=== PATIENT | male | born 1985 | race Hispanic/Latino ===

== ENCOUNTER 2018-08-04 03:09 | Emergency (ER) | payer OTHER, SELFPAY ==
[2018-08-04] MEDS ORDERED: LORazepam 2 MG/ML VIAL ONE (03:51)
[2018-08-04] MEDS ORDERED: NA CHLORIDE 0.9% 1,000 ML ONE (03:51)
[2018-08-04 04:00] LABS: Absolute Lymphocytes (CBC) 2.3 K/uL (0.7-4.9); Absolute Monocytes 0.7 K/uL (0.1-1.3); Absolute Neutrophil 8.4 K/uL (1.8-8.0); Basophils % 0.6 % (0-1.3); Eosinophils % 0.6 % (0-4.4); Hematocrit 48.1 % (39.6-49.0); Lymphocytes % 19.7 % (15.3-44.8); MPV 6.8 fL (7.6-11.3); Monocytes % 6.2 % (3.3-12.3); RBC Red Blood Cell Count 5.32 M/uL (4.33-5.43)
[2018-08-04 04:04] LABS: Protime INR 0.97
[2018-08-04 04:15] LABS: ALT/SGPT 27 U/L (12-78); AST/SGOT 23 U/L (15-37); Albumin 4.2 g/dL (3.4-5.0); Alkaline Phosphatase 141 U/L (45-117); BUN Blood Urea Nitrogen 10 mg/dL (7-18); Bicarbonate 24 mmol/L (21-32); Bilirubin Direct 0.2 mg/dL (0-0.2); Bilirubin Total 0.7 mg/dL (0.2-1.0); Glucose Level 98 mg/dL (74-106); Potassium 3.4 mmol/L (3.5-5.1); Protein, Total 7.8 g/dL (6.4-8.2); Sodium Level 141 mmol/L (136-145)
--- NOTE | 2018-08-04 04:37 | ER ---
Nurse's Notes [facility] Name: Ethan Daly Age: 32 yrs Sex: Male : 1985 Arrival Date: 08/04/2018 Time: 03:17 Bed 3 Private MD: Diagnosis: Abuse of non-psychoactive substances;Cocaine abuse;Cocaine abuse with intoxication;Adjustment disorder with depressed mood;Hypokalemia Presentation: 08/04 03:22 Presenting complaint: Patient states: Pt reports taking a lot of cocaine today and tl2 yesterday and drinking "25 beers today". Pt is trembling. Pt denies suicidal ideation, pt mother states he is going through a divorce and is having a hard time. Transition of care: patient was not received from another setting of care. Onset of symptoms was August 04, 2018. Risk Assessment: Do you want to hurt yourself or someone else? Patient reports no desire to harm self or others. Initial Sepsis Screen: Does the patient meet any 2 criteria? No. Patient's initial sepsis screen is negative. Does the patient have a suspected source of infection? No. Patient's initial sepsis screen is negative. Care prior to arrival: None. 03:22 Method Of Arrival: Wheelchair tl2 03:22 Acuity: FREDI 2 tl2 Triage Assessment: 03:24 General: Appears distressed, uncomfortable, Behavior is agitated, anxious. General: tl2 Reports using cocaine and alcohol today and yesterday. Pain: Denies pain. Neuro: Level of Consciousness is awake, Oriented to person, Speech is normal. Cardiovascular: Denies chest pain. Respiratory: Airway is patent Respiratory effort is even, unlabored, Respiratory pattern is regular, symmetrical. GI: No signs and/or symptoms were reported involving the gastrointestinal system. Derm: Skin is pink, warm \\T\\ dry. Historical: - Allergies: 03:24 No Known Allergies; tl2 - Home Meds: 03:24 None [Active]; tl2 - PMHx: 03:24 None; tl2 - PSHx: 03:24 left arm; tl2 - Immunization history:: Adult Immunizations up to date. - Social history:: Smoking status: Patient uses tobacco products, denies chronic smoking, but will smoke occasionally, Patient uses street drugs, cocaine, Patient uses alcohol, on a daily basis. - Ebola Screening: : No symptoms or risks identified at this time. - Family history:: not pertinent. Screenin:28 Abuse screen: Denies threats or abuse. Nutritional screening: No deficits noted. tl2 Tuberculosis screening: No symptoms or risk factors identified. Fall Risk IV access (20 points). Mental Status- Overestimates/Forgets Limitations (15 pts.). Assessment: 03:29 General: see triage assessment. tl2 04:18 Reassessment: Patient appears in no apparent distress at this time. Patient and/or tl2 family updated on plan of care and expected duration. Pain level reassessed. pt resting comfortably. Fluids infusing, VSS, family at bedside. 05:30 Reassessment: Patient appears in no apparent distress at this time. Patient and/or tl2 family updated on plan of care and expected duration. Pain level reassessed. pt appears to be sleeping, RR even and unlabored. 06:32 Reassessment: Patient appears in no apparent distress at this time. Patient and/or tl2 family updated on plan of care and expected duration. Pain level reassessed. Patient is alert, oriented x 3, equal unlabored respirations, skin warm/dry/pink. pt calm and resting comfortably. No questions or concerns at this time Patient states feeling better. 06:50 Reassessment: Patient appears in no apparent distress at this time. Patient and/or tl2 family updated on plan of care and expected duration. Pain level reassessed. Patient is alert, oriented x 3, equal unlabored respirations, skin warm/dry/pink. pt and family verbalized understanding of discharge instructions, need for follow up and safety practices Patient states feeling better. Vital Signs: 03:24 BP 148 / 93; Pulse 100; Resp 20; Temp 98.2(O); Pulse Ox 100% ; Weight 68.04 kg; Height tl2 5 ft. 7 in. (170.18 cm); Pain 0/10; 04:17 BP 117 / 74; Pulse 80; Resp 15; Pulse Ox 97% on R/A; tl2 05:15 BP 116 / 71; Pulse 81; Resp 16; Pulse Ox 97% on R/A; tl2 06:34 BP 117 / 69; Pulse 74; Resp 16; Pulse Ox 98% on R/A; tl2 03:24 Body Mass Index 23.49 (68.04 kg, 170.18 cm) tl2 ED Course: 03:17 Patient arrived in ED. aa1 03:18 EKG done, by ED staff, reviewed by Alan Luna MD. aa1 03:19 Alan Luna MD is Attending Physician. dipika 03:24 Triage completed. tl2 03:24 Arm band placed on right wrist. EKG completed in triage. Results shown to MD. tl2 03:28 Inserted saline lock: 20 gauge in right antecubital area, using aseptic technique. tl2 Blood collected. placed by DIPAK Wolf. 03:28 Patient has correct armband on for positive identification. Placed in gown. Bed in low tl2 position. Call light in reach. Side rails up X2. Adult w/ patient. 03:28 conveyor monitor on. Pulse ox on. NIBP on. tl2 03:29 Ashli Engel RN is Primary Nurse. tl2 06:50 No provider procedures requiring assistance completed. IV discontinued, intact, tl2 bleeding controlled, No redness/swelling at site. Pressure dressing applied. Administered Medications: 03:42 Drug: NS 0.9% 1000 ml Route: IV; Rate: 1 bolus; Site: right antecubital; tl2 05:00 Follow up: IV Status: Completed infusion; IV Intake: 1000ml tl2 03:43 Drug: Ativan 0.5 mg Route: IVP; Site: right antecubital; tl2 04:00 Follow up: Response: No adverse reaction; Anxiety decreased tl2 06:31 Drug: Ativan 0.5 mg Route: IVP; Site: right antecubital; tl2 06:51 Follow up: Response: No adverse reaction; Anxiety decreased tl2 06:31 Drug: Potassium Effervescent Tablet 25 mEq Route: PO; tl2 06:51 Follow up: Response: No adverse reaction tl2 Intake: 05:00 IV: 1000ml; Total: 1000ml. tl2 Outcome: 04:36 Discharge ordered by . [facility] 06:50 Discharged to home ambulatory, with family. tl2 06:50 Condition: stable 06:50 Discharge instructions given to patient, family, Instructed on discharge instructions, follow up and referral plans. 06:51 Patient left the ED. tl2 Signatures: Arti Doss RN RN aa1 Alan Luna MD MD cha Knox, [place], RN RN tl2 Corrections: (The following items were deleted from the chart) 06:34 05:30 BP 117 / 69; Pulse 74bpm; Resp 16bpm; Pulse Ox 98% RA; tl2 tl2
--- NOTE | 2018-08-04 04:37 | EDPHYS ---
Physician Documentation [facility] Name: Ethan Daly Age: 32 yrs Sex: Male : 1985 Arrival Date: 08/04/2018 Time: 03:17 Bed 3 Private MD: ED Physician Alan Luna HPI: 08/04 03:25 This 32 yrs old Male presents to ER via Wheelchair with complaints of Drug dipika Abuse. 03:25 substance abuse , cocaine. Onset: The symptoms/episode began/occurred 1 day(s) ago. dipika Severity of symptoms: At their worst the symptoms were mild in the emergency department the symptoms are unchanged. The patient has not experienced similar symptoms in the past. Historical: - Allergies: 03:24 No Known Allergies; tl2 - Home Meds: 03:24 None [Active]; tl2 - PMHx: 03:24 None; tl2 - PSHx: 03:24 left arm; tl2 - Immunization history:: Adult Immunizations up to date. - Social history:: Smoking status: Patient uses tobacco products, denies chronic smoking, but will smoke occasionally, Patient uses street drugs, cocaine, Patient uses alcohol, on a daily basis. - Ebola Screening: : No symptoms or risks identified at this time. - Family history:: not pertinent. ROS: 03:25 Constitutional: Negative for fever, chills, and weight loss, Eyes: Negative for injury, dipika pain, redness, and discharge, ENT: Negative for injury, pain, and discharge, Neck: Negative for injury, pain, and swelling, Cardiovascular: Negative for chest pain, palpitations, and edema, Respiratory: Negative for shortness of breath, cough, wheezing, and pleuritic chest pain, Abdomen/GI: Negative for abdominal pain, nausea, vomiting, diarrhea, and constipation, Back: Negative for injury and pain, : Negative for injury, bleeding, discharge, and swelling, MS/Extremity: Negative for injury and deformity, Skin: Negative for injury, rash, and discoloration, Psych: Negative for depression, anxiety, suicide ideation, homicidal ideation, and hallucinations, Allergy/Immunology: Negative for hives, rash, and allergies, Endocrine: Negative for neck swelling, polydipsia, polyuria, polyphagia, and marked weight changes, Hematologic/Lymphatic: Negative for swollen nodes, abnormal bleeding, and unusual bruising. 03:25 Neuro: Positive for altered mental status. Exam: 03:25 Constitutional: This is a well developed, well nourished patient who is awake, alert, dipika and in no acute distress. Head/Face: Normocephalic, atraumatic. Eyes: Pupils equal round and reactive to light, extra-ocular motions intact. Lids and lashes normal. Conjunctiva and sclera are non-icteric and not injected. Cornea within normal limits. Periorbital areas with no swelling, redness, or edema. ENT: Nares patent. No nasal discharge, no septal abnormalities noted. Tympanic membranes are normal and external auditory canals are clear. Oropharynx with no redness, swelling, or masses, exudates, or evidence of obstruction, uvula midline. Mucous membranes moist. Neck: Trachea midline, no thyromegaly or masses palpated, and no cervical lymphadenopathy. Supple, full range of motion without nuchal rigidity, or vertebral point tenderness. No Meningismus. Chest/axilla: Normal chest wall appearance and motion. Nontender with no deformity. No lesions are appreciated. Cardiovascular: Regular rate and rhythm with a normal S1 and S2. No gallops, murmurs, or rubs. Normal PMI, no JVD. No pulse deficits. Respiratory: Lungs have equal breath sounds bilaterally, clear to auscultation and percussion. No rales, rhonchi or wheezes noted. No increased work of breathing, no retractions or nasal flaring. Abdomen/GI: Soft, non-tender, with normal bowel sounds. No distension or tympany. No guarding or rebound. No evidence of tenderness throughout. Back: No spinal tenderness. No costovertebral tenderness. Full range of motion. Male : Normal genitalia with no discharge or lesions. Skin: Warm, dry with normal turgor. Normal color with no rashes, no lesions, and no evidence of cellulitis. MS/ Extremity: Pulses equal, no cyanosis. Neurovascular intact. Full, normal range of motion. Neuro: Awake and alert, GCS 15, oriented to person, place, time, and situation. Cranial nerves II-XII grossly intact. Motor strength 5/5 in all extremities. Sensory grossly intact. Cerebellar exam normal. Normal gait. Psych: Awake, alert, with orientation to person, place and time. Behavior, mood, and affect are within normal limits. Vital Signs: 03:24 BP 148 / 93; Pulse 100; Resp 20; Temp 98.2(O); Pulse Ox 100% ; Weight 68.04 kg; Height tl2 5 ft. 7 in. (170.18 cm); Pain 0/10; 04:17 BP 117 / 74; Pulse 80; Resp 15; Pulse Ox 97% on R/A; tl2 05:15 BP 116 / 71; Pulse 81; Resp 16; Pulse Ox 97% on R/A; tl2 06:34 BP 117 / 69; Pulse 74; Resp 16; Pulse Ox 98% on R/A; tl2 03:24 Body Mass Index 23.49 (68.04 kg, 170.18 cm) 2 MDM: 03:19 Patient medically screened. [facility] 03:25 Data reviewed: vital signs, nurses notes, lab test result(s), EKG. [facility] 08/04 03:21 Order name: Acetaminophen [facility] 08/04 03:21 Order name: Basic Metabolic Panel [facility] 08/04 03:21 Order name: CBC with Diff [facility] 08/04 03:21 Order name: ETOH Level [facility] 08/04 03:21 Order name: Hepatic Function [facility] 08/04 03:21 Order name: PT-INR [facility] 08/04 03:21 Order name: Ptt, Activated [facility] 08/04 03:21 Order name: Salicylate; Complete Time: 04:15 [facility] 08/04 03:22 Order name: Acetaminophen Level; Complete Time: 04:35 [facility] 08/04 03:22 Order name: Basic Metabolic Panel; Complete Time: 04:35 [facility] 08/04 03:22 Order name: CBC with Automated Diff; Complete Time: 04:15 [facility] 08/04 03:22 Order name: Alcohol Serum/Plasma; Complete Time: 04:15 [facility] 08/04 03:22 Order name: Liver (Hepatic) Function; Complete Time: 04:35 [facility] 08/04 03:18 Order name: EKG; Complete Time: 03:18 [facility] 08/04 03:18 Order name: EKG - Nurse/Tech; Complete Time: 03:18 [facility] 08/04 03:21 Order name: EKG; Complete Time: 03:23 [facility] 08/04 03:21 Order name: IV Saline Lock; Complete Time: 03:21 [facility] 08/04 03:21 Order name: Labs collected and sent; Complete Time: 03:21 tl2 08/04 03:22 Order name: Protime (+INR); Complete Time: 04:15 [facility] 08/04 03:22 Order name: PTT, Activated Partial Thromb; Complete Time: 04:15 [facility] 08/04 04:35 Order name: PO challenge: juice; Complete Time: 06:32 dipika Administered Medications: 03:42 Drug: NS 0.9% 1000 ml Route: IV; Rate: 1 bolus; Site: right antecubital; tl2 05:00 Follow up: IV Status: Completed infusion; IV Intake: 1000ml tl2 03:43 Drug: Ativan 0.5 mg Route: IVP; Site: right antecubital; tl2 04:00 Follow up: Response: No adverse reaction; Anxiety decreased tl2 06:31 Drug: Ativan 0.5 mg Route: IVP; Site: right antecubital; tl2 06:51 Follow up: Response: No adverse reaction; Anxiety decreased tl2 06:31 Drug: Potassium Effervescent Tablet 25 mEq Route: PO; tl2 06:51 Follow up: Response: No adverse reaction tl2 Disposition: 08/04/18 04:36 Discharged to Home. Impression: Abuse of non-psychoactive substances, Cocaine abuse, Cocaine abuse with intoxication, Adjustment disorder with depressed mood, Hypokalemia. - Condition is Stable. - Discharge Instructions: Adjustment Disorder, Adult, Stimulant Use Disorder-Cocaine, Substance Use Disorder. - Medication Reconciliation Form, Thank You Letter, Antibiotic Education, Prescription Opioid Use, Work release form form. - Follow up: Private Physician; When: 2 - 3 days; Reason: Recheck today's complaints, Continuance of care, Re-evaluation by your physician. - Problem is new. - Symptoms have improved. Signatures: Dispatcher [employer] [facility] Arti Doss RN RN aa1 Alan Luna MD MD cha Knox, [place], RN RN tl2 Corrections: (The following items were deleted from the chart) 06:35 03:21 Urine Dipstick-Ancillary ordered. tl2 tl2 06:51 04:36 08/04/2018 04:36 Discharged to Home. Impression: Abuse of non-psychoactive tl2 substances; Cocaine abuse; Cocaine abuse with intoxication; Adjustment disorder with depressed mood; Hypokalemia. Condition is Stable. Discharge Instructions: Adjustment Disorder, Adult, Stimulant Use Disorder-Cocaine, Substance Use Disorder. Forms are Medication Reconciliation Form, Thank You Letter, Antibiotic Education, Prescription Opioid Use. Follow up: Private Physician; When: 2 - 3 days; Reason: Recheck today's complaints, Continuance of care, Re-evaluation by your physician. Problem is new. Symptoms have improved. dipika
[2018-08-04] MEDS ORDERED: POTASSIUM 25 MEQ EFFERV TAB ONE (06:31)
[2018-08-04 06:56] VITALS: TEMP 98.2
[2018-08-04 07:00] VITALS: BP 117/69; O2SAT 98
--- NOTE | 2018-08-04 09:19 | EKG ---
Test Date: 2018-08-04 Test Time: 03:15:46 Lock Setter: OMEGA MEASUREMENT RESULTS: Intervals: Rate: 100 VT: 148 QRSD: 86 QT: 346 QTc: 446 [place]: P: 60 VT: 148 QRS: -20 T: 21 INTERPRETIVE STATEMENTS: Normal sinus rhythm Possible Left atrial enlargement Borderline ECG Compared to ECG 12/14/2013 20:28:08 No significant changes Electronically Signed On 08-04-18 09:18:38 CDT by Se Tripp
== END 2018-08-04 06:51 | disposition home or self-care (01) ==
LOC: ER 03:09
DX: F14.129 Cocaine abuse with intoxication, unspecified (principal); F55.8 Abuse of other non-psychoactive substances; F43.21 Adjustment disorder with depressed mood; E87.6 Hypokalemia; Z72.0 Tobacco use
CPT/HCPCS: 36415; 80048; 80076; 80320; 80329; 85025; 85610; 85730; 93005; 96361; 96374; 99284; J7030

== ENCOUNTER → 2019-09-27 | Emergency (ER) | payer SELFPAY ==
--- OUTSIDE RECORDS SUMMARY | 2019-09-27 23:16 | XMS REPORT | Continuity of Care Document ---
:1985 Author Organization [facility] t Address [address] [place] [address] [place] [id number] Care Team Providers Name Role Phone Unavailable Unavailable Unavailable Problems This patient has no known problems. Allergies, Adverse Reactions, Alerts This patient has no known allergies or adverse reactions. Medications This patient has no known medications. Procedures This patient has no known procedures. Results This patient has no known results.
== END ==
LOC: ER 23:14
DX: Z02.9 Encounter for administrative examinations, unspecified (principal)

== ENCOUNTER 2020-03-13 01:05 | Emergency (ER) | payer SELFPAY ==
--- OUTSIDE RECORDS SUMMARY | 2020-03-13 01:06 | XMS REPORT | Continuity of Care Document ---
:1985 Author Organization [facility] t Address [address] [place] [address] [place] [id number] Care Team Providers Name Role Phone Unavailable Unavailable Unavailable Problems This patient has no known problems. Allergies, Adverse Reactions, Alerts This patient has no known allergies or adverse reactions. Medications This patient has no known medications. Procedures This patient has no known procedures. Results This patient has no known results.
[2020-03-13] MEDS ORDERED: NA CHLORIDE 0.9% 1,000 ML ONE (02:29)
[2020-03-13] MEDS ORDERED: MIDAZOLAM HCL 2 MG/2 ML INJ ONE (02:29)
[2020-03-13] MEDS ORDERED: KETOROLAC 30 MG/ML INJ ONE (02:29)
[2020-03-13] MEDS ORDERED: ETOMIDATE 20 MG/10 ML VIAL IV ONE (02:29)
--- NOTE | 2020-03-13 08:49 | RAD REPORT ---
EXAM DESCRIPTION: RAD - Shoulder Left 2 View - 03/13/2020 7:29 am CLINICAL HISTORY: PAIN, trauma COMPARISON: Shoulder Left 2 View dated 10/30/2014 TECHNIQUE: Internal and external rotation views of the left shoulder were obtained. Imaging was perf ormed portable. FINDINGS: Humeral head is dislocated medial and inferior to the bony glenoid. This is classic positi oning for anterior dislocation. No fracture identified. AC joint separation is present matching the c omparison study from 2014. No abnormal soft tissue calcifications. IMPRESSION: Anterior dislocation left humeral head without fracture component identifiable. Chronic widening of the AC joint.
--- NOTE | 2020-03-13 08:55 | RAD REPORT ---
EXAM DESCRIPTION: RAD - Shoulder Left 2 View - 03/13/2020 4:13 am CLINICAL HISTORY: POST REDUCTION COMPARISON: Shoulder Left 2 View dated 03/13/2020; Shoulder Left 2 View dated 10/30/2014; Shoulder Le ft 2 View dated 10/30/2014; Shoulder Left 2 View dated 08/10/2014 TECHNIQUE: Internal and external rotation views of the left shoulder were obtained. Exam was perform ed portable FINDINGS: Humeral head has been reduced to anatomic position. On the external rotation image there i s a small bone density position between the glenoid and humeral head. This could be a small fracture fragment. Donor site is not clearly seen. The small bone density not clearly evident on the remote im aging. On the external rotation postreduction image there is superior displacement of the head of the clavi jason relative to the acromion. IMPRESSION: Left humeral head has been reduced to anatomic position. There is a small bone density a re fragment between the humeral head and the acromion that could be an acute bone fragment. This was not seen on prior imaging. Superior displacement of the clavicle relative to the acromion on the external rotation postreduction view. Patient may have a chronic, mobile AC joint separation.
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
--- NOTE | 2020-03-13 13:22 | EDPHYS ---
Physician Documentation [facility] Name: Ethan Daly Age: 34 yrs Sex: Male : 1985 Arrival Date: 03/13/2020 Time: 01:09 Bed 23 Private MD: SID Physician Alan Luna HPI: 03/13 01:51 This 34 yrs old Male presents to ER via Ambulatory with complaints of Shoulder dipika Injury - left poss dislocation. 01:51 The patient or guardian complains of decreased range of motion, pain, that is acute. dipika left shoulder. Context: The problem was sustained at home, resulted from an unknown reason. Onset: The symptoms/episode began/occurred this morning. Modifying factors: the symptoms are alleviated by remaining still, The symptoms are aggravated by lifting weight, movement. Associated signs and symptoms: The patient has no apparent associated signs or symptoms. Severity of symptoms: At their worst the symptoms were mild, moderate, in the emergency department the symptoms are unchanged. Treatment prior to arrival includes: no previous treatment. The patient has experienced similar episodes in the past, multiple times. Historical: - Allergies: 01:45 No Known Allergies; sg - Family history:: not pertinent. ROS: 01:51 Constitutional: Negative for fever, chills, and weight loss, Eyes: Negative for injury, dipika pain, redness, and discharge, ENT: Negative for injury, pain, and discharge, Neck: Negative for injury, pain, and swelling, Cardiovascular: Negative for chest pain, palpitations, and edema, Respiratory: Negative for shortness of breath, cough, wheezing, and pleuritic chest pain, Abdomen/GI: Negative for abdominal pain, nausea, vomiting, diarrhea, and constipation, Back: Negative for injury and pain, : Negative for injury, bleeding, discharge, and swelling, Skin: Negative for injury, rash, and discoloration, Neuro: Negative for headache, weakness, numbness, tingling, and seizure, Psych: Negative for depression, anxiety, suicide ideation, homicidal ideation, and hallucinations, Allergy/Immunology: Negative for hives, rash, and allergies, Endocrine: Negative for neck swelling, polydipsia, polyuria, polyphagia, and marked weight changes, Hematologic/Lymphatic: Negative for swollen nodes, abnormal bleeding, and unusual bruising. 01:51 MS/extremity: Positive for decreased range of motion, pain, of the anterior aspect of left shoulder and posterior aspect of left shoulder. Exam: 01:51 Constitutional: This is a well developed, well nourished patient who is awake, alert, dipika and in no acute distress. Head/Face: Normocephalic, atraumatic. Eyes: Pupils equal round and reactive to light, extra-ocular motions intact. Lids and lashes normal. Conjunctiva and sclera are non-icteric and not injected. Cornea within normal limits. Periorbital areas with no swelling, redness, or edema. ENT: Nares patent. No nasal discharge, no septal abnormalities noted. Tympanic membranes are normal and external auditory canals are clear. Oropharynx with no redness, swelling, or masses, exudates, or evidence of obstruction, uvula midline. Mucous membranes moist. Neck: Trachea midline, no thyromegaly or masses palpated, and no cervical lymphadenopathy. Supple, full range of motion without nuchal rigidity, or vertebral point tenderness. No Meningismus. Chest/axilla: Normal chest wall appearance and motion. Nontender with no deformity. No lesions are appreciated. Cardiovascular: Regular rate and rhythm with a normal S1 and S2. No gallops, murmurs, or rubs. Normal PMI, no JVD. No pulse deficits. Respiratory: Lungs have equal breath sounds bilaterally, clear to auscultation and percussion. No rales, rhonchi or wheezes noted. No increased work of breathing, no retractions or nasal flaring. Abdomen/GI: Soft, non-tender, with normal bowel sounds. No distension or tympany. No guarding or rebound. No evidence of tenderness throughout. Back: No spinal tenderness. No costovertebral tenderness. Full range of motion. Male : Normal genitalia with no discharge or lesions. Skin: Warm, dry with normal turgor. Normal color with no rashes, no lesions, and no evidence of cellulitis. Neuro: Awake and alert, GCS 15, oriented to person, place, time, and situation. Cranial nerves II-XII grossly intact. Motor strength 5/5 in all extremities. Sensory grossly intact. Cerebellar exam normal. Normal gait. Psych: Awake, alert, with orientation to person, place and time. Behavior, mood, and affect are within normal limits. 01:51 Musculoskeletal/extremity: ROM: limited active range of motion, limited passive range of motion, limited active range of motion due to pain, limited passive range of motion due to pain, in the anterior aspect of left shoulder, Sensation intact. Compartment Syndrome exam of affected extremity: is normal. Joints: the left shoulder displays deformity, dislocation. Vital Signs: 01:44 BP 136 / 77; Pulse 72; Resp 16; Temp 97.2; Pulse Ox 100% on R/A; sg 04:30 BP 103 / 71; Pulse 78; Resp 15; Pulse Ox 96% on 2 lpm NC; aj1 05:00 BP 109 / 72; Pulse 78; Resp 18; Pulse Ox 96% on 2 lpm NC; aj1 05:30 BP 123 / 98; Pulse 84; Resp 18; Pulse Ox 99% on 2 lpm NC; aj1 06:00 BP 125 / 93; Pulse 89; Resp 18; Pulse Ox 98% on 2 lpm NC; aj1 Procedures: 01:57 Reduction: of the left shoulder, using traction, Immobilized with shoulder immobilizer. dipika Patient tolerated well. Post reduction film - reveals normal alignment. MDM: 01:58 Differential diagnosis: Anterior dislocation without fracture, Posterior dislocation dipika without fracture. Data reviewed: vital signs, nurses notes, radiologic studies, plain films. Data interpreted: satellite project site monitor: rate is 72 beats/min, rhythm is regular, Pulse oximetry: on room air is 100 %. Test interpretation: by ED physician or midlevel provider: plain radiologic studies. Counseling: I had a detailed discussion with the patient and/or guardian regarding: the historical points, exam findings, and any diagnostic results supporting the discharge/admit diagnosis, radiology results, the need for outpatient follow up, for definitive care, a orthopedic surgeon. 02:03 Patient medically screened. [facility] 03/13 01:51 Order name: NPO; Complete Time: 01:55 [facility] 03/13 01:57 Order name: Ice pack; Complete Time: 02:04 [facility] 03/13 01:57 Order name: Shoulder Immobilizer; Complete Time: 04:13 [facility] 03/13 03:59 Order name: Conscious Sedation; Complete Time: 03:59 sg Administered Medications: 03:00 Drug: NS 0.9% 1000 ml Route: IV; Rate: 1 bolus; Site: right antecubital; sg 03:40 Drug: TORadol 30 mg Route: IVP; Site: right antecubital; sg 03:50 Drug: Versed 2 mg Route: IVP; Site: right antecubital; sg 03:51 Drug: Versed 2 mg Route: IVP; Site: right antecubital; sg 03:54 Drug: Etomidate 10 mg Route: IVP; Site: right antecubital; sg 04:13 Not Given (Physician Discretion): Etomidate 10 mg IVP once sg Disposition: 03/13/20 03:41 Discharged to Home. Impression: Recurrent dislocation, left shoulder - reduced. - Condition is Stable. - Discharge Instructions: Shoulder Dislocation, Shoulder Dislocation, [id number]. - Prescriptions for Ibuprofen 600 mg Oral Tablet - take 1 tablet by ORAL route every 8 hours As needed take with food; 21 tablet. - Medication Reconciliation Form, Thank You Letter, Antibiotic Education, Prescription Opioid Use form. - Follow up: Private Physician; When: 2 - 3 days; Reason: Recheck today's complaints, Continuance of care, Re-evaluation by your physician. Follow up: Jim Diggs; When: 2 - 3 days; Reason: Recheck today's complaints, Re-evaluation by your physician. - Problem is new. - Symptoms have improved. Signatures: Herbert Hughes RN RN sg Anderson, Corey, MD MD cha Antunez, Elena, RN RN ea Corrections: (The following items were deleted from the chart) 06:31 03:41 03/13/2020 03:41 Discharged to Home. Impression: Recurrent dislocation, left ea shoulder - reduced. Condition is Stable. Discharge Instructions: Shoulder Dislocation, Shoulder Dislocation, [id number]. Prescriptions for Ibuprofen 600 mg Oral Tablet - take 1 tablet by ORAL route every 8 hours As needed take with food; 21 tablet. and Forms are Medication Reconciliation Form, Thank You Letter, Antibiotic Education, Prescription Opioid Use. Follow up: Private Physician; When: 2 - 3 days; Reason: Recheck today's complaints, Continuance of care, Re-evaluation by your physician. Follow up: Jim Diggs; When: 2 - 3 days; Reason: Recheck today's complaints, Re-evaluation by your physician. Problem is new. Symptoms have improved. dipika
[2020-03-16 13:29] VITALS: TEMP 97.2
[2020-03-16 13:35] VITALS: BP 125/93; O2SAT 98
== END 2020-03-13 06:31 | disposition home or self-care (01) ==
LOC: ER 01:05
PROC: 0RSKXZZ Reposition Left Shoulder Joint, External Approach (ICD-10-PCS; principal; 2020-03-13)
DX: M24.412 Recurrent dislocation, left shoulder (principal)
CPT/HCPCS: 96374; 96375; 99284; J2250; J7030

== ENCOUNTER 2022-02-13 03:14 | Emergency (ER) | payer SELFPAY ==
--- OUTSIDE RECORDS SUMMARY | 2022-02-13 03:17 | XMS REPORT | Continuity of Care Document ---
:1985 Author Organization [facility] t Address [address] [place] [address] [place] [address] Care Team Providers Name Role Phone Unavailable Unavailable Unavailable Problems This patient has no known problems. Allergies, Adverse Reactions, Alerts This patient has no known allergies or adverse reactions. Medications This patient has no known medications. Procedures This patient has no known procedures. Results This patient has no known results.
--- NOTE | 2022-02-13 03:31 | EDPHYS ---
Physician Documentation [facility] Name: Ethan Daly Age: 36 yrs Sex: Male : 1985 Arrival Date: 02/13/2022 Time: 03:14 Bed DIS3 Private MD: ED Physician Ariela Rueda HPI: 02/13 03:27 This 36 yrs old Male presents to ER via Law Enforcement with complaints of sd2 possible ingestion. 03:27 36 yo M presents with CC of possible ingestion from correction. He was brought in by police sd2 who report that when they got him to the correction he put something in a baggie, possibly a narcotic, into his mouth and swallowed it. Patient refuses to tell us what it was and refuses to speak with me. He declines any medical care or attention at this time and would not like to be seen by a provider. Declines examination.. Historical: - Allergies: 03:24 No Known Allergies; tw5 - PMHx: 03:24 Unable to Obtain; tw5 - PSHx: 03:24 Unable to Obtain; tw5 - Immunization history:: Flu vaccine status is unknown. - Social history:: Smoking status: unknown. ROS: 03:27 Unable to obtain ROS due to patient being uncooperative. sd2 Exam: 03:27 Constitutional: This is a well developed, well nourished patient who is awake, alert, sd2 and in no acute distress. Head/Face: Normocephalic, atraumatic. Eyes: EOMI, normal conjunctiva bilaterally Cardiovascular: Tachycardic rate based on pulse oximetry Respiratory: Pt with no increased WOB or respiratory distress Skin: Warm, dry with normal turgor. Normal color with no rashes, no lesions, and no evidence of cellulitis. MS/ Extremity: Pulses equal, no cyanosis. Neurovascular intact. Full, normal range of motion. Ambulatory without difficulty. Psych: Awake, alert, with orientation to person, place and time. Behavior, mood, and affect are within normal limits. Vital Signs: 03:21 Weight 79.38 kg; Height 5 ft. 8 in. (172.72 cm); tw5 03:22 BP 120 / 87; Pulse 128; Resp 18; Temp 98.8(O); Pulse Ox 99% on R/A; mm9 03:21 Body Mass Index 26.61 (79.38 kg, 172.72 cm) tw5 MDM: 03:18 Patient medically screened. sd2 03:27 Differential diagnosis: Ingestion/exposure to substance polypharmacy, over medication, sd2 among others. Data reviewed: vital signs, nurses notes. ED course: Patient is awake, alert and ambulatory. VS with tachycardia, otherwise stable. Pt is uncooperative and refuses to give further history and declines medical exam or further treatment. He is within his rights to do so and exhibits rational behavior and thought processes. He is alert and oriented. He will be cleared to return to correction at this time. . Administered Medications: No medications were administered Disposition: 03:32 Chart complete. sd2 Disposition Summary: 02/13/22 03:31 Discharge Ordered Location: Home sd2 Problem: new sd2 Symptoms: are unchanged sd2 Condition: Stable sd2 Diagnosis - Possible ingestion of illicit substance sd2 - Medical clearance for incarceration sd2 Followup: sd2 - With: Private Physician - When: 1 - 2 days - Reason: Recheck today's complaints, Continuance of care, Re-evaluation by your physician Discharge Instructions: - Discharge Summary Sheet sd2 - Medical Screening Exam sd2 Forms: - Medication Reconciliation Form sd2 - Thank You Letter sd2 - Antibiotic Education sd2 - Prescription Opioid Use sd2 Signatures: Isabela Mcleod tw5 Ariela Rueda MD MD sd2
--- NOTE | 2022-02-13 03:31 | ER ---
Nurse's Notes [facility] Name: Ethan Daly Age: 36 yrs Sex: Male : 1985 Arrival Date: 02/13/2022 Time: 03:14 Bed DIS3 Private MD: Diagnosis: Possible ingestion of illicit substance;Medical clearance for incarceration Presentation: 02/13 03:21 Chief complaint: Patient states: Patient at this time is refusing to answer any tw5 questions regarding the event. Officer stated " We got him [facility] the [facility] and he put something in his mouth and swallowed it. We don't know what it was or how much. We believe it was a narcotic.". Coronavirus screen: Vaccine status: Patient reports being unvaccinated. Ebola Screen: Patient negative for fever greater than or equal to 101.5 degrees Fahrenheit, and additional compatible Ebola Virus Disease symptoms Patient denies exposure to infectious person. Patient denies travel to an Ebola-affected area in the 21 days before illness onset. Initial Sepsis Screen: Does the patient meet any 2 criteria? No. Patient's initial sepsis screen is negative. Does the patient have a suspected source of infection? No. Patient's initial sepsis screen is negative. Risk Assessment: Do you want to hurt yourself or someone else? Patient reports no desire to harm self or others. Onset of symptoms was February 13, 2022 at 03:00. 03:21 Method Of Arrival: Law Enforcement: [facility] tw5 03:21 Acuity: FREDI 4 tw5 Triage Assessment: 03:24 General: Appears in no apparent distress. Behavior is uncooperative. Pain: Denies pain. tw5 Historical: - Allergies: 03:24 No Known Allergies; tw5 - PMHx: 03:24 Unable to Obtain; tw5 - PSHx: 03:24 Unable to Obtain; tw5 - Immunization history:: Flu vaccine status is unknown. - Social history:: Smoking status: unknown. Screenin:50 Abuse screen: Denies threats or abuse. Denies injuries from another. Nutritional tw5 screening: No deficits noted. Tuberculosis screening: No symptoms or risk factors identified. Fall Risk Mental Status- Overestimates/Forgets Limitations (15 pts.). Assessment: 03:50 General: Appears in no apparent distress. Behavior is uncooperative. General: Behavior tw5 is. Neuro: Level of Consciousness is awake, alert, obeys commands. Vital Signs: 03:21 Weight 79.38 kg; Height 5 ft. 8 in. (172.72 cm); tw5 03:22 BP 120 / 87; Pulse 128; Resp 18; Temp 98.8(O); Pulse Ox 99% on R/A; mm9 03:21 Body Mass Index 26.61 (79.38 kg, 172.72 cm) tw5 ED Course: 03:14 Patient arrived in ED. as 03:18 Ariela Rueda MD is Attending Physician. sd2 03:23 Triage completed. tw5 03:24 Arm band placed on left wrist. tw5 03:26 Patient has correct armband on for positive identification. Pulse ox on. NIBP on. rv1 03:50 No provider procedures requiring assistance completed. Patient did not have IV access tw5 during this emergency room visit. Administered Medications: No medications were administered Medication: 03:50 VIS not applicable for this client. tw5 Outcome: 03:31 Discharge ordered by . sd2 03:50 Discharged to Law Enforcement tw5 03:50 Condition: unchanged 03:50 Discharge instructions given to patient, police, Instructed on discharge instructions, follow up and referral plans. Demonstrated understanding of instructions, follow-up care. 03:51 Patient left the ED. tw5 Signatures: Ciera Zavaleta Tiffany tw5 Ariela Rueda MD MD sd2 Jaymie Zavaleta mmCarol Baig rv1
[2022-02-13 03:54] VITALS: BP 120/87; TEMP 98.8; O2SAT 99
== END 2022-02-13 03:51 | disposition home or self-care (01) ==
LOC: ER 03:14
DX: Z02.89 Encounter for other administrative examinations (principal)
CPT/HCPCS: 99283

== ENCOUNTER 2022-08-29 17:56 | Emergency (ER) | payer SELFPAY ==
--- OUTSIDE RECORDS SUMMARY | 2022-08-29 17:59 | XMS REPORT | Continuity of Care Document ---
:1985 Author Organization [facility] t Address [address] [place] [address] Care Team Providers Name Role Phone Unavailable Unavailable Unavailable Problems This patient has no known problems. Allergies, Adverse Reactions, Alerts This patient has no known allergies or adverse reactions. Medications This patient has no known medications. Procedures This patient has no known procedures. Results This patient has no known results.
[2022-08-29 18:24] LABS: Absolute Lymphocytes (CBC) 2.4 K/uL (0.7-4.9); Lymphocytes % 31.4 % (15.3-44.8); MCV 92.7 fL (80-100); MPV 5.9 fL (7.6-11.3); RBC Red Blood Cell Count 4.97 M/uL (4.33-5.43)
[2022-08-29] MEDS ORDERED: LORazepam 2 MG/ML VIAL ONE (18:24)
[2022-08-29] MEDS ORDERED: NA CHLORIDE 0.9% 1,000 ML ONE (18:24)
[2022-08-29 18:42] LABS: Bilirubin Total 0.6 mg/dL (0.2-1.0); Potassium 3.6 mEq/L (3.5-5.1); Protein, Total 7.9 g/dL (6.4-8.2); Troponin High Sensitivity 6.7 pg/mL (<58.9)
--- NOTE | 2022-08-29 18:58 | RAD REPORT ---
EXAM DESCRIPTION: RAD - Chest Single View - 08/29/2022 6:53 pm CLINICAL HISTORY: CHEST PAIN Chest pain. COMPARISON: CHEST SINGLE VIEW dated 01/09/2013 FINDINGS: Portable technique limits examination quality. The lungs are underinflated but grossly clear. The heart is normal in size. No displaced fractures. IMPRESSION: No acute intrathoracic process suspected.
--- NOTE | 2022-08-29 21:11 | ER ---
Nurse's Notes [facility] Name: Ethan Daly Age: 36 yrs Sex: Male : 1985 Arrival Date: 08/29/2022 Time: 17:56 Bed 8 Private MD: Diagnosis: Chest pain, unspecified;Adverse effect of amphetamines;Amphetamine abuse. Amphetamine intoxication Presentation: 08/29 18:07 Chief complaint: Left sided chest pain and SOB that started after snorting hb methamphetamine 1 hour ago. Coronavirus screen: At this time, the client does not indicate any symptoms associated with coronavirus-19. Ebola Screen: No symptoms or risks identified at this time. Initial Sepsis Screen: Does the patient meet any 2 criteria? No. Patient's initial sepsis screen is negative. Does the patient have a suspected source of infection? No. Patient's initial sepsis screen is negative. Risk Assessment: Do you want to hurt yourself or someone else? Patient reports no desire to harm self or others. Onset of symptoms was August 29, 2022. 18:07 Method Of Arrival: Ambulatory hb 18:07 Acuity: FREDI 2 hb Historical: - Allergies: 18:08 No Known Allergies; hb - Home Meds: 18:08 None [Active]; hb - PMHx: 18:08 None; hb - PSHx: 18:08 None; hb - Immunization history:: Adult Immunizations up to date. - Social history:: Smoking status: Patient denies any tobacco usage or history of. - Family history:: not pertinent. Screenin:00 [facility] ED Fall Risk Assessment (Adult) History of falling in the last 3 months, hb including since admission No falls in past 3 months (0 pts) Confusion or Disorientation No (0 pts) Intoxicated or Sedated No (0 pts) Impaired Gait No (0 pts) Mobility Assist Device Used No (0 pt) Altered Elimination No (0 pt) Score/Fall Risk Level 0 - 2 = Low Risk Oriented to surroundings, Maintained a safe environment, Educated pt \T\ family on fall prevention, incl call for assistance when getting out of bed, Assessed \T\ reinforced patient's understanding of fall precautions, Provided non-skid footwear, Hourly rounding (assess needs \T\ fall precautionary measures) done, Used ambulatory aids as needed (educated on \T\ assisted with), Used gait belt as appropriate. Abuse screen: Denies threats or abuse. Denies injuries from another. Nutritional screening: No deficits noted. Tuberculosis screening: No symptoms or risk factors identified. Assessment: 18:15 General: Appears distressed, uncomfortable, Behavior is appropriate for age, anxious, hb crying, restless. Pain: Complains of pain in chest Pain does not radiate. Pain began 30 min ago. Neuro: No deficits noted. Cardiovascular: Chest pain is described as severe, Pain is 10 out of 10 on a pain scale. Respiratory: Reports shortness of breath at rest. GI: No deficits noted. : No deficits noted. EENT: No deficits noted. Derm: No deficits noted. Musculoskeletal: No deficits noted. 21:21 Reassessment: Patient appears in no apparent distress at this time. Patient states kl feeling better. Patient states symptoms have improved. Vital Signs: 18:00 BP 148 / 115; Pulse 101; Resp 24; Pulse Ox 99% on R/A; hb 18:00 BP 135 / 102; Pulse 93; Resp 18; Pulse Ox 97% on R/A; hb 18:07 BP 152 / 112; Pulse 114; Resp 20; Temp 98.7; Pulse Ox 100% on R/A; Weight 58.97 kg; hb Height 5 ft. 6 in. ; Pain 10/10; 18:40 BP 127 / 96; Pulse 90; Resp 18; Pulse Ox 96% ; hb 21:21 BP 129 / 98; Pulse 92; Resp 18; Pulse Ox 100% on R/A; kl 18:07 Body Mass Index 20.98 (58.97 kg, 167.64 cm) hb 18:07 Pain Scale: Adult hb ED Course: 17:57 Patient arrived in ED. hb 17:58 Laci Doty MD is Attending Physician. rt 17:58 Mckenna Hearn, DIPAK is Primary Nurse. ko1 18:00 Patient has correct armband on for positive identification. Bed in low position. Call hb light in reach. Side rails up X2. Adult w/ patient. Client placed on continuous cardiac and pulse oximetry monitoring. NIBP monitoring applied. cafeteria monitor on. Door closed. Noise minimized. Lights dimmed. Warm blanket given. 18:00 Patient maintains SpO2 saturation greater than 95% on room air. hb 18:08 Triage completed. hb 18:08 Arm band placed on. hb 18:10 Inserted saline lock: 18 gauge in left antecubital area, using aseptic technique. Blood hb collected. 18:14 CPK Sent. hb 18:14 Troponin High Sensitivity Sent. hb 18:14 CMP Sent. hb 18:14 CBC with Diff Sent. hb 18:54 Chest Single View XRAY In Process Unspecified. EDMS 20:48 Attending Physician role handed off by Laci Doty MD sp4 20:48 Nicolas Gomes MD is Attending Physician. sp4 21:22 No provider procedures requiring assistance completed. IV discontinued, intact, kl bleeding controlled, No redness/swelling at site. Pressure dressing applied. Administered Medications: 18:18 Drug: NS 0.9% IV 1000 ml Route: IV; Rate: 1 bolus; Site: left antecubital; hb 18:25 Drug: Ativan IVP 2 mg Route: IVP; Site: left antecubital; hb Medication: 21:22 VIS not applicable for this client. kl Outcome: 21:10 Discharge ordered by . sp4 21:22 Discharged to home ambulatory. kl 21:22 Condition: improved 21:22 Discharge instructions given to family, newspaper carrier, Instructed on discharge instructions, follow up and referral plans. Demonstrated understanding of instructions, follow-up care. 21:22 Patient left the ED. kl Signatures: Dispatcher [employer] Oanh Hardy RN RN kl Baxter, Heather, RN RN hb Oliver, Kathy, RN RN ko1 Laci Doty MD MD Nicolas Gomes MD MD sp4
--- NOTE | 2022-08-29 21:11 | EDPHYS ---
Physician Documentation [facility] Name: Ethan Daly Age: 36 yrs Sex: Male : 1985 Arrival Date: 08/29/2022 Time: 17:56 Bed 8 Private MD: ED Physician Nicolas Gomes HPI: 08/29 18:48 This 36 yrs old Male presents to ER via Ambulatory with complaints of Chest rt Pain, Drug Abuse. 18:48 Patient presents to the ED with 1 hour of chest pain, shortness of breath that occurred rt after he took methamphetamines. The patient states that he feels anxious at this time. He denies other acute complaints at this time. Pain is aching nature, nonradiating, moderate severity, no other aggravating or alleviating factors.. Historical: - Allergies: 18:08 No Known Allergies; hb - Home Meds: 18:08 None [Active]; hb - PMHx: 18:08 None; hb - PSHx: 18:08 None; hb - Immunization history:: Adult Immunizations up to date. - Social history:: Smoking status: Patient denies any tobacco usage or history of. - Family history:: not pertinent. ROS: 18:48 Constitutional: Negative for fever, chills, and weight loss, Abdomen/GI: Negative for rt abdominal pain, nausea, vomiting, diarrhea, and constipation, MS/Extremity: Negative for injury and deformity, Skin: Negative for injury, rash, and discoloration, Neuro: Negative for headache, weakness, numbness, tingling, and seizure. 18:48 Cardiovascular: Positive for chest pain, Negative for edema. 18:48 Respiratory: Positive for shortness of breath, Negative for cough. 18:48 Psych: Positive for anxiety. Exam: 18:48 Constitutional: This is a well developed, well nourished patient who is awake, alert, rt and in no acute distress. Head/Face: Normocephalic, atraumatic. Chest/axilla: Normal chest wall appearance and motion. Nontender with no deformity. No lesions are appreciated. Cardiovascular: Regular rate and rhythm with a normal S1 and S2. No gallops, murmurs, or rubs. Normal PMI, no JVD. No pulse deficits. Respiratory: Lungs have equal breath sounds bilaterally, clear to auscultation and percussion. No rales, rhonchi or wheezes noted. No increased work of breathing, no retractions or nasal flaring. Abdomen/GI: Soft, non-tender, with normal bowel sounds. No distension or tympany. No guarding or rebound. No evidence of tenderness throughout. Skin: Warm, dry with normal turgor. Normal color with no rashes, no lesions, and no evidence of cellulitis. MS/ Extremity: Pulses equal, no cyanosis. Neurovascular intact. Full, normal range of motion. Neuro: Awake and alert, GCS 15, oriented to person, place, time, and situation. Cranial nerves II-XII grossly intact. Motor strength 5/5 in all extremities. Sensory grossly intact. Cerebellar exam normal. Normal gait. Psych: Awake, alert, with orientation to person, place and time. Behavior, mood, and affect are within normal limits. 18:48 ECG was reviewed by the Attending Physician. Vital Signs: 18:00 BP 148 / 115; Pulse 101; Resp 24; Pulse Ox 99% on R/A; hb 18:00 BP 135 / 102; Pulse 93; Resp 18; Pulse Ox 97% on R/A; hb 18:07 BP 152 / 112; Pulse 114; Resp 20; Temp 98.7; Pulse Ox 100% on R/A; Weight 58.97 kg; hb Height 5 ft. 6 in. ; Pain 10/10; 18:40 BP 127 / 96; Pulse 90; Resp 18; Pulse Ox 96% ; hb 21:21 BP 129 / 98; Pulse 92; Resp 18; Pulse Ox 100% on R/A; kl 18:07 Body Mass Index 20.98 (58.97 kg, 167.64 cm) hb 18:07 Pain Scale: Adult hb MDM: 18:02 Patient medically screened. rt 19:44 Differential diagnosis: Dysrhythmia, acute coronary syndrome, methamphetamine abuse, rt pneumonia, pneumothorax. HEART Score: History: Slightly Suspicious (0), ECG: Normal (0), Age: < or = 45 years (0), Risk Factors: 1 or 2 risk factors (1), Troponin: < or = 1 x Normal Limit (0), Total Score = 1. Data reviewed: vital signs, nurses notes, lab test result(s), EKG, radiologic studies. Consideration of Admission/Observation Escalation of care including admission/observation considered. I considered the following discharge prescriptions or medication management in the emergency department Medications were administered in the Emergency Department. See MAR. Independent interpretation of the following test(s) in the Emergency Department X-Ray: My interpretation is No pneumothorax seen on my interpretation of the x-ray image. Test considered but Not performed: CT: Low suspicion for pulmonary embolism, CT angiogram not indicated. Counseling: I had a detailed discussion with the patient and/or guardian regarding: the historical points, exam findings, and any diagnostic results supporting the discharge/admit diagnosis, lab results, radiology results, the need for outpatient follow up, to return to the emergency department if symptoms worsen or persist or if there are any questions or concerns that arise at home. 21:09 ED course: Patient was awakened and states he is feeling improved. Patient states he sp4 would like to go home . Discharged home in stable condition. 08/29 18:08 Order name: CBC with Diff; Complete Time: 18:45 rt 08/29 18:08 Order name: CMP; Complete Time: 18:45 rt 08/29 18:08 Order name: Troponin High Sensitivity; Complete Time: 18:45 rt 08/29 18:08 Order name: CPK; Complete Time: 18:45 rt 08/29 18:08 Order name: Chest Single View XRAY; Complete Time: 19:00 rt 08/29 18:08 Order name: EKG; Complete Time: 18:08 rt 08/29 18:08 Order name: EKG - Nurse/Tech; Complete Time: 18:14 rt EC:48 Rate is 98 beats/min. Rhythm is regular, Normal Sinus Rhythm with No ectopy. QRS [place] rt is Normal. [place] interval is normal. QRS interval is normal. QT interval is normal. No Q waves. T waves are Normal. No ST changes noted. Interpreted by me. Administered Medications: 18:18 Drug: NS 0.9% IV 1000 ml Route: IV; Rate: 1 bolus; Site: left antecubital; hb 18:25 Drug: Ativan IVP 2 mg Route: IVP; Site: left antecubital; hb Disposition Summary: 08/29/22 21:10 Discharge Ordered Location: Home sp4 Problem: new sp4 Symptoms: are resolved sp4 Condition: Stable sp4 Diagnosis - Chest pain, unspecified sp4 - Adverse effect of amphetamines sp4 - Amphetamine abuse. Amphetamine intoxication sp4 Followup: rt - With: Private Physician - When: 2 - 3 days - Reason: Discharge Instructions: - Discharge Summary Sheet rt - Nonspecific Chest Pain, Adult rt - Methamphetamines Use Disorder rt Signatures: Dispatcher [employer] Vianca Drummond, RN RN Laci Lan MD MD rt Nicolas Gomes MD MD sp4
[2022-08-29 21:58] VITALS: TEMP 98.7
[2022-08-29 22:03] VITALS: BP 129/98; O2SAT 100
--- NOTE | 2022-08-31 07:21 | EKG ---
Test Date: 2022-08-29 Test Time: 18:10:03 Temporary Data Entry Clerk: ELLA MEASUREMENT RESULTS: Intervals: Rate: 98 TN: 144 QRSD: 82 QT: 340 QTc: 434 [place]: P: 72 TN: 144 QRS: 103 T: -3 INTERPRETIVE STATEMENTS: Normal sinus rhythm Normal ECG Compared to ECG 08/04/2018 03:15:46 No significant changes Electronically Signed On 08-31-22 07:15:06 CDT by Se Tripp
== END 2022-08-29 21:22 | disposition home or self-care (01) ==
LOC: ER 17:56
DX: R07.9 Chest pain, unspecified (principal); T43.625A Adverse effect of amphetamines, initial encounter
CPT/HCPCS: 36415; 71045; 80053; 82550; 84484; 85025; 93005; 96374; 99285; J7030

== ENCOUNTER 2023-11-29 08:05 | Emergency (ER) | payer SELFPAY ==
--- OUTSIDE RECORDS SUMMARY | 2023-11-29 08:08 | XMS REPORT | Continuity of Care Document ---
Author Name Unknown Address [address] [place] [address] thconnect Address [address] [place] [address] [place] [address] Care Team Providers Care Gear Inspector Name Role Phone Unavailable Unavailable Unavailable
[2023-11-29] MEDS ORDERED: LORazepam 2 MG/ML VIAL ONE (08:21)
[2023-11-29] MEDS ORDERED: ASPIRIN 81 MG CHEWABLE TABLET ONE (08:22)
[2023-11-29 08:29] LABS: Absolute Basophils 0.1 K/uL (0-0.5); Absolute Eosinophils 0.1 K/uL (0-0.5); Absolute Lymphocytes (CBC) 2.2 K/uL (0.7-4.9); Absolute Neutrophil 6.7 K/uL (1.8-8.0); Basophils % 0.6 % (0-1.3); Eosinophils % 0.6 % (0-4.4); Hematocrit 50.9 % (39.6-49.0); Hemoglobin 16.9 g/dL (13.6-17.9); Lymphocytes % 22.2 % (15.3-44.8); MCH 31.7 pg (27.0-35.0); MCHC 33.2 g/dL (32.0-36.0); MCV 95.5 fL (80-100); MPV 6.3 fL (7.6-11.3); Monocytes % 9.8 % (3.3-12.3); Neutrophils % 66.8 % (41.7-73.7); Platelets 500 thou/uL (152-406); RBC Red Blood Cell Count 5.33 M/uL (4.33-5.43); Red Cell Distribution Width 13.1 % (12.1-15.2)
--- NOTE | 2023-11-29 08:36 | RAD REPORT ---
EXAM DESCRIPTION: RAD - Chest Single View - 11/29/2023 8:29 am CLINICAL HISTORY: CHEST PAIN Chest pain. COMPARISON: Chest Single View dated 08/29/2022; CHEST SINGLE VIEW dated 01/09/2013 FINDINGS: Portable technique limits examination quality. The lungs are grossly clear. The heart is normal in size. No displaced fractures. IMPRESSION: No acute intrathoracic process suspected.
[2023-11-29 08:46] LABS: Troponin High Sensitivity 6.2 pg/mL (<58.9)
--- NOTE | 2023-11-29 09:20 | ER ---
Nurse's Notes [facility] Name: Ethan Daly Age: 37 yrs Sex: Male : 1985 Arrival Date: 11/29/2023 Time: 08:05 Bed 16 Private MD: Diagnosis: Chest pain, unspecified;Cocaine abuse;Methamphetamine abuse Presentation: 11/28 08:27 Chief complaint: Patient states: "I started having chest pain and SOB 2 days ago after mb9 using meth and cocaine. I want help to get sober.". Coronavirus screen: Vaccine status: Patient reports being unvaccinated. Ebola Screen: No symptoms or risks identified at this time. Initial Sepsis Screen: Does the patient meet any 2 criteria? No. Patient's initial sepsis screen is negative. Does the patient have a suspected source of infection? No. Patient's initial sepsis screen is negative. Risk Assessment: Do you want to hurt yourself or someone else? Patient reports no desire to harm self or others. Onset of symptoms was November 26, 2023. 08:27 Acuity: FREDI 2 mb9 08:27 Method Of Arrival: Ambulatory mb9 Triage Assessment: 08:28 General: Appears uncomfortable, Behavior is anxious. Pain: Complains of pain in chest mb9 Pain does not radiate. Pain currently is 10 out of 10 on a pain scale. Quality of pain is described as pressure, Pain began 1 day ago. Is continuous. EENT: No signs and/or symptoms were reported regarding the EENT system. Neuro: [place] Agitation-Sedation Scale (RASS): 0 - Alert and Calm Level of Consciousness is awake, alert, obeys commands, Oriented to person, place, time, situation, Appropriate for age. Cardiovascular: Reports chest pain, shortness of breath, Heart tones S1 S2 present Patient's skin is warm and dry. Rhythm is regular. Respiratory: Reports shortness of breath Airway is patent Respiratory effort is even, unlabored, Respiratory pattern is regular, symmetrical, Breath sounds are clear bilaterally. GI: Reports nausea. : No signs and/or symptoms were reported regarding the genitourinary system. Derm: Skin is pink, warm \\T\\ dry. Musculoskeletal: Range of motion: intact in all extremities. Historical: - Allergies: 08:27 No Known Allergies; mb9 - Home Meds: 08:27 None [Active]; mb9 - PMHx: 08:27 None; mb9 - PSHx: 08:27 None; mb9 - Immunization history:: Adult Immunizations up to date. - Infectious Disease History:: Denies. - Social history:: Smoking status: Patient reports the use of cigarette tobacco products, smokes one-half pack cigarettes per day. Screenin:30 [facility] ED Fall Risk Assessment (Adult) History of falling in the last 3 months, mb9 including since admission No falls in past 3 months (0 pts) Confusion or Disorientation No (0 pts) Intoxicated or Sedated No (0 pts) Impaired Gait No (0 pts) Mobility Assist Device Used No (0 pt) Altered Elimination No (0 pt) Score/Fall Risk Level 0 - 2 = Low Risk Oriented to surroundings, Maintained a safe environment, Educated pt \\T\\ family on fall prevention, incl call for assistance when getting out of bed. Abuse screen: Denies threats or abuse. Nutritional screening: No deficits noted. Tuberculosis screening: No symptoms or risk factors identified. Assessment: 08:29 Reassessment: see triage assessment. mb9 09:03 Reassessment: Patient and/or family updated on plan of care and expected duration. Pain mb9 level reassessed. Patient is alert, oriented x 3, equal unlabored respirations, skin warm/dry/pink. Patient states symptoms have not improved. Vital Signs: 08:27 BP 144 / 104; Pulse 98; Resp 20; Temp 98; Pulse Ox 100% ; Weight 74.84 kg; Height 5 ft. mb9 5 in. ; Pain 10/10; 09:08 BP 162 / 103; Pulse 70; Resp 18; Pulse Ox 100% on R/A; mb9 08:27 Body Mass Index 27.46 (74.84 kg, 165.1 cm) mb9 08:27 Pain Scale: Adult mb9 ED Course: 08:06 Patient arrived in ED. mg5 08:07 Jorge Adams DO is Attending Physician. ms3 08:15 EKG done, by ED staff, reviewed by Jorge Adams DO. mb9 08:20 Mariela Powers RN is Primary Nurse. mb9 08:20 Initial lab(s) drawn, by nh, sent to lab. Inserted saline lock: 20 gauge in left mb9 antecubital area, using aseptic technique. Blood collected. Flushed with 10 mL NS. 08: Basic Metabolic Panel Sent. mb9 08: CBC with Diff Sent. mb9 : Troponin HS Sent. mb9 : Arm band placed on. mb9 08:28 Triage completed. mb9 08:30 No provider procedures requiring assistance completed. mb9 08:30 Placed in gown. Bed in low position. Call light in reach. Side rails up X 1. Provided mb9 Education on: press call light if needing anything. Client placed on continuous cardiac and pulse oximetry monitoring. NIBP monitoring applied. telemetry monitor on. :31 XRAY Chest (1 view) In Process Unspecified. EDMS 09:17 Benjamin Mccullough DO is Referral Physician. ms3 09:27 IV discontinued, intact, bleeding controlled, No redness/swelling at site. Pressure mb9 dressing applied. Administered Medications: 08: Drug: Aspirin PO Chewable Tablet 324 mg PO once; 81 mg tablets x 4 Route: PO; mb9 09:09 Follow up: Response: No adverse reaction mb9 08:26 Drug: Ativan IVP 2 mg IVP once Route: IVP; Site: left antecubital; mb9 09:09 Follow up: Response: No adverse reaction mb9 Medication: 08:30 VIS not applicable for this client. mb9 Outcome: 09:19 Discharge ordered by . ms3 09:27 Discharged to home ambulatory, with family, mb9 09:27 Condition: stable 09:27 Discharge instructions given to patient, family, Instructed on discharge instructions, follow up and referral plans. Demonstrated understanding of instructions, follow-up care, :27 Patient left the ED. mb9 Signatures: Dispatcher [employer] EDMS Jorge Adams DO DO ms3 Mariela Powers, RN RN mb9 Melanie Paris mg5
--- NOTE | 2023-11-29 09:20 | EDPHYS ---
Physician Documentation [facility] Name: Ethan Daly Age: 37 yrs Sex: Male : 1985 Arrival Date: 11/29/2023 Time: 08:05 Bed 16 Private MD: ED Physician Jorge Adams HPI: 11/28 10:51 This 37 yrs old Male presents to ER via Ambulatory with complaints of Chest ms3 Pain. 10:51 37-year-old male with no past medical history presents to the emergency department for ms3 chest pain and shortness of breath that is been ongoing for 2 days. Patient endorses vomiting. He denies having these symptoms previously. Patient states he used methamphetamines and cocaine 2 days ago when the symptoms began.. Historical: - Allergies: 08:27 No Known Allergies; mb9 - Home Meds: 08:27 None [Active]; mb9 - PMHx: 08:27 None; mb9 - PSHx: 08:27 None; mb9 - Immunization history:: Adult Immunizations up to date. - Infectious Disease History:: Denies. - Social history:: Smoking status: Patient reports the use of cigarette tobacco products, smokes one-half pack cigarettes per day. ROS: 10:51 Constitutional: Negative for fever, and chills. ms3 10:51 Respiratory: Negative for shortness of breath, cough, wheezing, and pleuritic chest pain, Abdomen/GI: Negative for abdominal pain, nausea, vomiting, diarrhea, and constipation, MS/Extremity: Negative for injury and deformity, Skin: Negative for injury, rash, and discoloration, 10:51 Cardiovascular: Positive for chest pain, Exam: 10:51 Constitutional: This is a well developed, well nourished patient who is awake, alert, ms3 and in no acute distress. Neck: Trachea midline, no cervical lymphadenopathy. Supple, full range of motion without nuchal rigidity, or vertebral point tenderness. No Meningismus. Chest/axilla: Normal chest wall appearance and motion. Nontender with no deformity. Cardiovascular: Regular rate and rhythm with a normal S1 and S2. No gallops, murmurs, or rubs. Normal PMI, no JVD. No pulse deficits. Respiratory: Lungs have equal breath sounds bilaterally, clear to auscultation and percussion. No rales, rhonchi or wheezes noted. No increased work of breathing, no retractions or nasal flaring. Abdomen/GI: Soft, non-tender, with normal bowel sounds. No distension or tympany. No guarding or rebound. No evidence of tenderness throughout. Skin: Warm, dry with normal turgor. Normal color with no rashes, no lesions, and no evidence of cellulitis. 10:51 ECG was reviewed by the Attending Physician. ms3 Vital Signs: 08:27 BP 144 / 104; Pulse 98; Resp 20; Temp 98; Pulse Ox 100% ; Weight 74.84 kg; Height 5 ft. mb9 5 in. ; Pain 10/10; 09:08 BP 162 / 103; Pulse 70; Resp 18; Pulse Ox 100% on R/A; mb9 08:27 Body Mass Index 27.46 (74.84 kg, 165.1 cm) mb9 08:27 Pain Scale: Adult mb9 MDM: 08:25 Patient medically screened. ms3 10:51 Differential diagnosis: abnormal EKG, acute myocardial infarction, coronary artery ms3 disease chest wall pain, Substance abuse. HEART Score: History: Slightly Suspicious (0), ECG: Normal (0), Age: < or = 45 years (0), Risk Factors: No Risk Factors Known (0), Troponin: < or = 1 x Normal Limit (0), Total Score = 0. Data reviewed: vital signs, EMS record, lab test result(s), EKG, radiologic studies, and as a result, I will discharge patient. I considered the following discharge prescriptions or medication management in the emergency department Medications were administered in the Emergency Department. See MAR. Independent interpretation of the following test(s) in the Emergency Department EKG: See my EKG interpretation above X-Ray: My interpretation is Chest x-ray image reviewed by me does not reveal pneumothorax or pneumonia. Counseling: I had a detailed discussion with the patient and/or guardian regarding the historical points, exam findings, and any diagnostic results supporting the discharge/admit diagnosis, lab results, radiology results, the need for outpatient follow up, to return to the emergency department if symptoms worsen or persist or if there are any questions or concerns that arise at home. Special discussion: Based on the patient's history, exam, and Dx evaluation, there is no indication for emergent intervention or inpatient Tx. It is understood by the patient/guardian that if the Sx's persist or worsen they need to return immediately for re-evaluation. ED course: Discussed labs, EKG, chest x-ray findings with patient and his parents. Patient to follow-up with primary care physician in 2 to 3 days. Patient understands and agrees with plan. All questions were answered. Substance abuse cessation counseling provided for approximately 10 minutes. On reevaluation patient is alert and oriented x 4, no apparent distress, nontoxic-appearing, ambulatory emerged primary, speaking full sentences. 11/28 08:07 Order name: Basic Metabolic Panel; Complete Time: 09:07 ms3 11/28 08:07 Order name: CBC with Diff; Complete Time: 09:07 ms3 11/28 08:07 Order name: Troponin HS; Complete Time: 09: ms3 11/28 08:07 Order name: XRAY Chest (1 view); Complete Time: 09:07 ms3 11/28 08:07 Order name: Cardiac monitoring; Complete Time: 08:26 ms3 11/28 08:07 Order name: EKG - Nurse/Tech; Complete Time: 08:26 ms3 11/28 08:07 Order name: IV Saline Lock; Complete Time: 08:26 ms3 11/28 08:07 Order name: Labs collected and sent; Complete Time: 08:26 ms3 11/28 08:07 Order name: O2 Per Protocol; Complete Time: 08:26 ms3 11/28 08:07 Order name: O2 Sat Monitoring; Complete Time: 08:26 ms3 EC:51 Rate is 88 beats/min. Rhythm is regular. QRS [place] is Normal. CT interval is normal. QRS ms3 interval is normal. QT interval is normal. Clinical impression: Normal ECG. Interpreted by me. Reviewed by me. Administered Medications: 08:26 Drug: Aspirin PO Chewable Tablet 324 mg PO once; 81 mg tablets x 4 Route: PO; mb9 09:09 Follow up: Response: No adverse reaction mb9 08:26 Drug: Ativan IVP 2 mg IVP once Route: IVP; Site: left antecubital; mb9 09:09 Follow up: Response: No adverse reaction mb9 Disposition Summary: 11/29/23 09:19 Discharge Ordered Notes: Location: Home ms3 Condition: Stable ms3 Diagnosis - Chest pain, unspecified ms3 - Cocaine abuse ms3 - Methamphetamine abuse ms3 Followup: ms3 - With: Benjamin Mccullough DO - When: 2 - 3 days - Reason: Recheck today's complaints Discharge Instructions: - Discharge Summary Sheet ms3 - Nonspecific Chest Pain, Adult ms3 - Cocaine Use Disorder ms3 Forms: - Medication Reconciliation Form ms3 - Antibiotic Education ms3 - Prescription Opioid Use ms3 - Patient Portal Instructions ms3 - Leadership Thank You Letter ms3 Signatures: Dispatcher [employer] EDMS Jorge Adams DO DO ms3 Mariela Powers, RN RN mb9 Corrections: (The following items were deleted from the chart) 08:07 08:07 BASIC METABOLIC PANEL+C.LAB.BRZ ordered. EDMS EDMS 08:07 08:07 CBC+H.LAB.BRZ ordered. EDMS EDMS 08:07 08:07 Troponin High Sensitivity+C.LAB.BRZ ordered. EDMS EDMS 08:07 08:07 Chest Single View+RAD.RAD.BRZ ordered. EDMS EDMS
[2023-11-29 09:51] VITALS: TEMP 98; O2SAT 100
[2023-11-29 09:52] VITALS: BP 162/103
--- NOTE | 2023-12-01 14:13 | EKG ---
Test Date: 2023-11-29 Test Time: 08:11:42 Court Messenger: MB MEASUREMENT RESULTS: Intervals: Rate: 88 NE: 136 QRSD: 80 QT: 362 QTc: 438 [place]: P: 78 NE: 136 QRS: 81 T: 37 INTERPRETIVE STATEMENTS: Normal sinus rhythm with sinus arrhythmia Normal ECG Compared to ECG 08/29/2022 18:10:03 No significant changes Electronically Signed On 12-01-23 14:08:15 CDT by Rashawn Cortez
== END 2023-11-29 09:27 | disposition home or self-care (01) ==
LOC: ER 08:05
DX: R07.9 Chest pain, unspecified (principal); F14.10 Cocaine abuse, uncomplicated; F15.10 Other stimulant abuse, uncomplicated
CPT/HCPCS: 36415; 71045; 80048; 84484; 85025; 93005; 96374; 99285

== ENCOUNTER 2024-06-25 19:30 | Emergency (ER) | payer SELFPAY ==
--- OUTSIDE RECORDS SUMMARY | 2024-06-25 19:34 | XMS REPORT | Continuity of Care Document ---
Author Name Unknown Address [address] [facility] [address] [place] [address] [facility] [address] [facility] [address] [place] [address] Care Team Providers Care Finisher Screwdown Name Role Phone Arlette Beal Attending Clinician Unavail able Problems Condition Name Condition Details Condition Category Status Onset Date Resolution Date Last Treatment Date Treating Clinician Comments Source Recurrent major depressive episodes, moderate Recurrent major depressive episodes, moderate Problem [facility] [id number] Essential hypertensi on Problem [facility] [id number] Attention deficit hyperactiv ity disorder (ADHD), combined type Problem [facility] [id number] [place] (generaliz ed anxiety disorder) Problem [facility] [id number] Methamphet amine use Problem [facility] [id number] Overweight Problem Com [facility] Social History Social Habit Start Date Stop Date Quantity Comments Source History of Tobacco Use [facility] Sex Assigned At [facility] Smoking Status Start Date Stop Date Source Former Smoker 2024-05-06 00:00:00 2024-05-06 00:00:00 [facility] Medications Ordered Medication Name Filled Medication Name Start Date Stop Date Current Medication? Ordering Clinician Indication Dosage Frequency Signature (SIG) Comments Components Source Propranolol HCl 10 MG Propranolol HCl 10 MG 212 00:00: 00 No 1{table t} BID Propranolo l HCl 10 MG cefTRIAXone Sodium cefTRIAXone Sodium 2023-03 0-14 00:00: 00 No 1g [facility] Nitroglycer in 0.4 MG Nitroglycer in 0.4 MG 904 00:00: 00 No QD Nitroglyce rin 0.4 MG FLUoxetine HCl 40 MG FLUoxetine HCl 40 MG No 1{capsu le} QD FLUoxetine HCl 40 MG buPROPion HCl ER (XL) 300 MG buPROPion HCl ER (XL) 300 MG No 1{table t_in_th e_morni ng} QD buPROPion HCl ER (XL) 300 MG Vital Signs Vital Name Observation Time Observation Value Comments S ource height 2024-05-08 15:15:00 66 [in_i] Commo n [facility] weight 2024-05-08 15:15:00 180 [lb_av] Comm on [facility] temperature 2024-05-08 15:15:00 97.4 [degF] Com [facility] bmi 2024-05-08 15:15:00 29.05 kg/m2 Comm on [facility] oximetry 2024-05-08 15:15:00 98 % Commo n [facility] blood pressure systolic 2024-05-08 15:15:00 118 mm[Hg] [facility] blood pressure diastolic 2024-05-08 15:15:00 80 mm[Hg] [facility] height 2024-01-26 09:00:00 66 [in_i] Commo n [facility] weight 2024-01-26 09:00:00 160.8 [lb_av] Co mmon [facility] temperature 2024-01-26 09:00:00 97.5 [degF] Com [facility] bmi 2024-01-26 09:00:00 25.95 kg/m2 Comm on [facility] oximetry 2024-01-26 09:00:00 97 % Commo n [facility] blood pressure systolic 2024-01-26 09:00:00 128 mm[Hg] [facility] blood pressure diastolic 2024-01-26 09:00:00 60 mm[Hg] [facility] bmi 2024-01-08 09:20:00 26.11 kg/m2 Comm on [facility] oximetry 2024-01-08 09:20:00 98 % Commo n [facility] blood pressure systolic 2024-01-08 09:20:00 130 mm[Hg] [facility] blood pressure diastolic 2024-01-08 09:20:00 70 mm[Hg] [facility] height 2024-01-08 09:20:00 66 [in_i] Commo n [facility] weight 2024-01-08 09:20:00 161.8 [lb_av] Co mmon [facility] temperature 2024-01-08 09:20:00 97.7 [degF] Com mon [facility] height 2023-11-29 10:10:00 66 [in_i] Commo n [facility] weight 2023-11-29 10:10:00 155 [lb_av] Comm on [facility] temperature 2023-11-29 10:10:00 97.4 [degF] Com mon [facility] bmi 2023-11-29 10:10:00 25.01 kg/m2 Comm on [facility] oximetry 2023-11-29 10:10:00 98 % Commo n [facility] blood pressure systolic 2023-11-29 10:10:00 148 mm[Hg] [facility] blood pressure diastolic 2023-11-29 10:10:00 80 mm[Hg] [facility] Encounters Start Date/Time End Date/Time Encounter Type Admission Type Attending Clinicians Care Facility Care Department Encounter ID Source 2024-01-04 07:49:00 Outpatient Arlette Beal STLMLC STLMLC [id number] [facility] 2023-11-29 09:47:01 Outpatient Arlette Beal STLMLC ST[facility] [id number] [facility] 2024-05-08 00:00:00 2024-05-08 00:00:00 OFFICE VISIT ESTAB PT LEVEL 3 [facility] ST[facility]C [id number] [facility] 2024-04-04 00:00:00 2024-04-04 00:00:00 (TEL) STLMLC STLMLC [id number] [facility] 2024-01-26 00:00:00 2024-01-26 00:00:00 OFFICE VISIT ESTAB PT LEVEL 3 [facility]LMLC STL[facility]C [id number] [facility] 2024-01-09 00:00:00 2024-01-09 00:00:00 (TEL) STLMLC STLMLC [id number] [facility] 2024-01-08 00:00:00 2024-01-08 00:00:00 OFFICE VISIT ESTAB PT LEVEL 3 [facility]LMLC STLMLC [id number] [facility] 2024-01-03 00:00:00 2024-01-03 00:00:00 (TEL) STLMLC STLMLC [id number] [facility] 2023-12-27 00:00:00 2023-12-27 00:00:00 (TEL) STLMLC STLMLC [id number] [facility] 2023-11-29 00:00:00 2023-11-29 00:00:00 (TEL) STLMLC STLMLC [id number] [facility] 2023-11-29 00:00:00 2023-11-29 00:00:00 OFFICE VISIT NEW PT LEVEL 3 STLMLC STLMLC [id number] [facility] 2023-11-29 00:00:00 2023-11-29 00:00:00 (TEL) STLMLC STLMLC [id number] [facility] Results Test Description Test Time Test Comments Results Result Co mments Source
[2024-06-25] MEDS ORDERED: LORAZEPAM 1 MG TABLET ONE (20:07)
[2024-06-25 22:48] LABS: Absolute Basophils 0.1 K/uL (0-0.5); Absolute Lymphocytes (CBC) 2.9 K/uL (0.7-4.9); Absolute Monocytes 0.8 K/uL (0.1-1.3); Absolute Neutrophil 5.5 K/uL (1.8-8.0); Basophils % 0.6 % (0-1.3); Eosinophils % 0.5 % (0-4.4); Hematocrit 46.5 % (39.6-49.0); Hemoglobin 15.8 g/dL (13.6-17.9); Lymphocytes % 30.8 % (15.3-44.8); MCHC 33.9 g/dL (32.0-36.0); MCV 91.5 fL (80-100); MPV 6.2 fL (7.6-11.3); Monocytes % 8.8 % (3.3-12.3); Neutrophils % 59.3 % (41.7-73.7); Nucleated Red Blood Cells % 0.1 % (0-0); Platelets 429 thou/uL (152-406); RBC Red Blood Cell Count 5.08 M/uL (4.33-5.43); Red Cell Distribution Width 13.3 % (12.1-15.2)
[2024-06-25 23:06] LABS: Albumin 4.1 g/dL (3.4-5.0); Albumin/Globulin Ratio 1.1 (1.1-1.8); Anion Gap 7.7 mEq/L (5.0-15.0); Bilirubin Direct 0.2 mg/dL (0-0.2); Bilirubin Indirect, Calculated 0.4 mg/dL (0.2-0.8); Bilirubin Total 0.6 mg/dL (0.2-1.0); Globulin 3.6 g/dL (2.3-3.5); Potassium 3.7 mEq/L (3.5-5.1); Protein, Total 7.7 g/dL (6.4-8.2); Troponin High Sensitivity 3.5 pg/mL (<58.9)
--- NOTE | 2024-06-25 23:25 | ER ---
Nurse's Notes [facility] Name: Ethan Daly Age: 38 yrs Sex: Male : 1985 Arrival Date: 06/25/2024 Time: 19:30 Bed 15 Private MD: Diagnosis: Chest pain, unspecified;Methamphetamine abuse Presentation: 06/25 20:01 Chief complaint: Patient states: he is having a panic attack and is having chest cm10 tightness. pt states that he feels stressed out. Coronavirus screen: Client denies travel out of the [place] in the last 14 days. Ebola Screen: Patient denies travel to an Ebola-affected area in the 21 days before illness onset. Initial Sepsis Screen: Does the patient meet any 2 criteria? No. Patient's initial sepsis screen is negative. Does the patient have a suspected source of infection? No. Patient's initial sepsis screen is negative. Risk Assessment: Do you want to hurt yourself or someone else? Patient reports no desire to harm self or others. Onset of symptoms was June 25, 2024. 20:01 Method Of Arrival: Ambulatory cm10 20:01 Acuity: FREDI 3 cm10 Triage Assessment: 20:03 General: Appears in no apparent distress. uncomfortable, Behavior is agitated, anxious. cm10 Neuro: No deficits noted. Level of Consciousness is awake, alert, obeys commands, Oriented to person, place, time, situation, Appropriate for age. Respiratory: No deficits noted. Airway is patent Respiratory effort is even, unlabored, Respiratory pattern is regular, symmetrical. Historical: - Allergies: 20:02 No Known Allergies; cm10 - PMHx: 20:02 None; cm10 - Immunization history:: Adult Immunizations. - Infectious Disease History:: Denies. - Social history:: Smoking status: Reported history of juuling and/or vaping. Patient uses street drugs, Methamphetamine (Meth). - Family history:: not pertinent. Screenin:45 [facility] ED Fall Risk Assessment (Adult) History of falling in the last 3 months, me1 including since admission No falls in past 3 months (0 pts) Confusion or Disorientation No (0 pts) Intoxicated or Sedated No (0 pts) Impaired Gait No (0 pts) Mobility Assist Device Used No (0 pt) Altered Elimination No (0 pt) Score/Fall Risk Level 0 - 2 = Low Risk Maintained a safe environment, Provided non-skid footwear, Hourly rounding (assess needs \T\ fall precautionary measures) done. Abuse screen: Denies threats or abuse. Nutritional screening: No deficits noted. Tuberculosis screening: No symptoms or risk factors identified. Assessment: 22:45 General: Appears in no apparent distress. well groomed, well developed, well nourished, me1 Behavior is calm, cooperative, appropriate for age, Reports he is having a panic attack and is having chest tightness. pt states that he feels stressed out. States he was asleep when the pain in his chest woke him. It felt tight and was 9/10. Reports pain relief to a 5/10 since taking the ativan. Pain: Complains of pain in chest Pain does not radiate. Pain currently is 5 out of 10 on a pain scale. at worst was 9 out of 10 on a pain scale. Quality of pain is described as tightness Pain began suddenly, Is continuous. Neuro: Level of Consciousness is awake, alert, obeys commands, Oriented to person, place, time, situation, Appropriate for age. Cardiovascular: Patient's skin is warm and dry. Cardiovascular: Reports chest pain. Respiratory: Airway is patent Respiratory effort is even, unlabored, Respiratory pattern is regular, symmetrical. GI: No signs and/or symptoms were reported involving the gastrointestinal system. : No signs and/or symptoms were reported regarding the genitourinary system. EENT: No signs and/or symptoms were reported regarding the EENT system. Derm: Skin is intact, is healthy with good turgor, Skin is pink, warm \T\ dry. Musculoskeletal: No signs and/or symptoms reported regarding the musculoskeletal system. Vital Signs: 20:01 BP 139 / 98; Pulse 88; Resp 15; Temp 98.2(O); Pulse Ox 100% on R/A; Weight 81.65 kg; cm10 Height 5 ft. 6 in. ; Pain 10/10; 22:48 BP 113 / 78; Pulse 59; Resp 16; Pulse Ox 98% ; me1 23:15 BP 127 / 94; Pulse 64; Resp 16; Temp 98.3; Pulse Ox 96% ; me1 20:01 Body Mass Index 29.05 (81.65 kg, 167.64 cm) cm10 20:01 Pain Scale: Adult cm10 ED Course: 19:31 Patient arrived in ED. im 19:58 Laci Doty MD is Attending Physician. rt 20:01 Arm band placed on right wrist. Patient placed in waiting room. EKG completed in cm10 triage. Results shown to MD. 20:01 EKG done, by ED staff, reviewed by Laci Doty MD. cm10 20:02 Triage completed. cm10 22:32 Janet Montano, RN is Primary Nurse. me1 22:44 Basic Metabolic Panel Sent. me1 22:44 CBC with Diff Sent. me1 22:45 Patient has correct armband on for positive identification. Bed in low position. Call me1 light in reach. Side rails up X2. Provided Education on: POC. Verbalized understanding.. Client placed on continuous cardiac and pulse oximetry monitoring. NIBP monitoring applied. digital music instructor on. Pulse ox on. NIBP on. 22:45 LFT's Sent. me1 22:45 Troponin HS Sent. me1 22:45 Initial lab(s) drawn, by me, sent to lab. Inserted saline lock: 20 gauge in right me1 antecubital area, using aseptic technique. 22:45 No provider procedures requiring assistance completed. Patient maintains SpO2 me1 saturation greater than 95% on room air. 23:30 IV discontinued, intact, bleeding controlled, No redness/swelling at site. Pressure me1 dressing applied. Administered Medications: 20:08 Drug: LORazepam PO 2 mg PO once Route: PO; cm10 22:44 Follow up: Response: No adverse reaction; Anxiety decreased me1 Medication: 22:45 VIS not applicable for this client. me1 Outcome: 23:24 Discharge ordered by . rt 23:30 Discharged to home ambulatory, with family, me1 23:30 Condition: stable 23:30 Discharge instructions given to patient, family, Instructed on discharge instructions, follow up and referral plans. Demonstrated understanding of instructions, follow-up care, 23:31 Patient left the ED. me1 Signatures: Laci Doty MD MD rt Florence Meraz Clarissa, RN RN 10 Janet Montano, DIPAK RN me1 Corrections: (The following items were deleted from the chart) 22:45 20:01 Chief complaint: Patient states: he is having a panic attack and is having chest me1 tightness. pt states that he feels stressed out. cm10 23:26 23:15 BP 127 / 94; Pulse 64bpm; Resp 16bpm; Pulse Ox 96%; me1 me1
--- NOTE | 2024-06-25 23:25 | EDPHYS ---
Physician Documentation [facility] Name: Ethan Daly Age: 38 yrs Sex: Male : 1985 Arrival Date: 06/25/2024 Time: 19:30 Bed 15 Private MD: ED Physician Laci Doty HPI: 06/25 20:04 This 38 yrs old Male presents to ER via Ambulatory with complaints of Chest rt Pain, Breathing Difficulty. 20:04 Patient presents to the ED with chest pain, dizziness, shortness of breath. Reports rt that is having a panic attack. States that he has been drinking, using amphetamines due to stressors. States that has been feeling this way for 3 days. Denies other acute complaints at this time, symptoms are moderate in severity, no other aggravating alleviating factors.. Historical: - Allergies: 20:02 No Known Allergies; cm10 - PMHx: 20:02 None; cm10 - Immunization history:: Adult Immunizations. - Infectious Disease History:: Denies. - Social history:: Smoking status: Reported history of juuling and/or vaping. Patient uses street drugs, Methamphetamine (Meth). - Family history:: not pertinent. ROS: 20:04 Constitutional: Negative for fever, chills, and weight loss, Abdomen/GI: Negative for rt abdominal pain, nausea, vomiting, diarrhea, and constipation, MS/Extremity: Negative for injury and deformity, 20:04 Cardiovascular: Positive for chest pain, Negative for edema, 20:04 Respiratory: Positive for shortness of breath, Negative for cough, 20:04 Neuro: Positive for dizziness, Negative for loss of consciousness, 20:04 Psych: Positive for anxiety, Negative for suicidal ideation, Exam: 20:04 Constitutional: This is a well developed, well nourished patient who is awake, alert, rt and in no acute distress. Head/Face: Normocephalic, atraumatic. Chest/axilla: Normal chest wall appearance and motion. Nontender with no deformity. No lesions are appreciated. Cardiovascular: Regular rate and rhythm with a normal S1 and S2. No gallops, murmurs, or rubs. Normal PMI, no JVD. No pulse deficits. Respiratory: Lungs have equal breath sounds bilaterally, clear to auscultation and percussion. No rales, rhonchi or wheezes noted. No increased work of breathing, no retractions or nasal flaring. Abdomen/GI: Soft, non-tender, with normal bowel sounds. No distension or tympany. No guarding or rebound. No evidence of tenderness throughout. Skin: Warm, dry with normal turgor. Normal color with no rashes, no lesions, and no evidence of cellulitis. MS/ Extremity: Pulses equal, no cyanosis. Neurovascular intact. Full, normal range of motion. Neuro: Awake and alert, GCS 15, oriented to person, place, time, and situation. Cranial nerves II-XII grossly intact. Motor strength 5/5 in all extremities. Sensory grossly intact. Cerebellar exam normal. Normal gait. 20:04 ECG was reviewed by the Attending Physician. Vital Signs: 20:01 BP 139 / 98; Pulse 88; Resp 15; Temp 98.2(O); Pulse Ox 100% on R/A; Weight 81.65 kg; cm10 Height 5 ft. 6 in. ; Pain 10/10; 22:48 BP 113 / 78; Pulse 59; Resp 16; Pulse Ox 98% ; me1 23:15 BP 127 / 94; Pulse 64; Resp 16; Temp 98.3; Pulse Ox 96% ; me1 20:01 Body Mass Index 29.05 (81.65 kg, 167.64 cm) cm10 20:01 Pain Scale: Adult cm10 MDM: 20:03 Medical Screening Exam initiated rt 23:40 Differential diagnosis: Dysrhythmia, ACS, amphetamine abuse. HEART Score: History: rt Slightly Suspicious (0), ECG: Normal (0), Age: < or = 45 years (0), Risk Factors: 1 or 2 risk factors (1), Troponin: < or = 1 x Normal Limit (0), Total Score = 1. Data reviewed: vital signs, nurses notes, lab test result(s), EKG. Consideration of Admission/Observation Escalation of care including admission/observation considered. Nonischemic EKG, negative troponin, low suspicion for ACS, given chronicity of symptoms, 1 set of enzymes is sufficient to rule out acute coronary syndrome. I considered the following discharge prescriptions or medication management in the emergency department Medications were administered in the Emergency Department. See MAR. Test considered but Not performed: CT: Low suspicion for PE, clinically, PE RC negative, CT angiogram not indicated. Counseling: I had a detailed discussion with the patient and/or guardian regarding the historical points, exam findings, and any diagnostic results supporting the discharge/admit diagnosis, lab results, the need for outpatient follow up. Response to treatment: the patient's symptoms have resolved after treatment. 06/25 20:04 Order name: Basic Metabolic Panel; Complete Time: 23:16 rt 06/25 20:04 Order name: CBC with Diff; Complete Time: 23:16 rt 06/25 20:04 Order name: LFT's; Complete Time: 23:16 rt 06/25 20:04 Order name: Troponin HS; Complete Time: 23:16 rt 06/25 20:04 Order name: EKG; Complete Time: 20:04 rt 06/25 20:04 Order name: EKG - Nurse/Tech; Complete Time: 20:08 rt 06/25 20:04 Order name: IV Saline Lock; Complete Time: 22:44 rt 06/25 20:04 Order name: Labs collected and sent; Complete Time: :44 rt 06/25 20:04 Order name: O2 Per Protocol; Complete Time: 22:36 rt 06/25 20:04 Order name: O2 Sat Monitoring; Complete Time: 22:36 rt EC:04 Rate is 86 beats/min. Rhythm is regular, Normal Sinus Rhythm with No ectopy. QRS [place] rt is Normal. [place] interval is normal. QRS interval is normal. QT interval is normal. No Q waves. T waves are Normal. No ST changes noted. Interpreted by me. Administered Medications: 20:08 Drug: LORazepam PO 2 mg PO once Route: PO; 10 22:44 Follow up: Response: No adverse reaction; Anxiety decreased me1 Disposition Summary: 06/25/24 23:24 Discharge Ordered Notes: Location: Home rt Problem: new rt Symptoms: have improved rt Condition: Stable rt Diagnosis - Chest pain, unspecified rt - Methamphetamine abuse rt Followup: rt - With: Private Physician - When: 2 - 3 days - Reason: Discharge Instructions: - Discharge Summary Sheet rt - Nonspecific Chest Pain, Adult rt - Methamphetamines Use Disorder rt Forms: - Medication Reconciliation Form rt - Antibiotic Education rt - Prescription Opioid Use rt - Patient Portal Instructions rt - Leadership Thank You Letter rt Signatures: Dispatcher [facility] Laci Andersen MD MD rt Carmen Zavaleta RN RN cm10 Janet Montano RN me1 Corrections: (The following items were deleted from the chart) 20:04 20:04 BASIC METABOLIC PANEL+C.LAB.BRZ ordered. EDMS EDMS 20:04 20:04 CBC+H.LAB.BRZ ordered. EDMS EDMS 20:04 20:04 HEPATIC FUNCTION+C.LAB.BRZ ordered. EDMS EDMS 20:04 20:04 Troponin High Sensitivity+C.LAB.BRZ ordered. EDMS EDMS
[2024-06-25 23:39] VITALS: BP 127/94; TEMP 98.3; O2SAT 96
--- NOTE | 2024-06-26 12:33 | EKG ---
Test Date: 2024-06-25 Test Time: 19:58:36 Die Caster: RACHEL MEASUREMENT RESULTS: Intervals: Rate: 86 WA: 144 QRSD: 86 QT: 358 QTc: 428 [place]: P: 67 WA: 144 QRS: -45 T: 41 INTERPRETIVE STATEMENTS: Normal sinus rhythm Left anterior fascicular block Abnormal ECG Compared to ECG 11/29/2023 08:11:42 Left anterior fascicular block now present Sinus arrhythmia no longer present Electronically Signed On 06-26-24 12:32:00 CDT by Chandu Simms
== END 2024-06-25 23:31 | disposition home or self-care (01) ==
LOC: ER 19:30
DX: F15.10 Other stimulant abuse, uncomplicated (principal)
CPT/HCPCS: 36415; 80048; 80076; 84484; 85025; 93005; 99285

== ENCOUNTER 2024-07-21 18:36 | Emergency (ER) | payer SELFPAY ==
--- OUTSIDE RECORDS SUMMARY | 2024-07-21 18:40 | XMS REPORT | Continuity of Care Document ---
Author Name Unknown Address [address] [facility] [address] [place] [address] [facility] Address [address] [facility] [place] [address] Care Team Providers Care Space Scheduler Name Role Phone Arlette Beal Attending Clinician Unavail able Problems Condition Name Condition Details Condition Category Status Onset Date Resolution Date Last Treatment Date Treating Clinician Comments Source Recurrent major depressive episodes, moderate Recurrent major depressive episodes, moderate Problem [facility] [id number] Essential hypertensi on Problem [facility] [id number] Attention deficit hyperactiv ity disorder (ADHD), combined type Problem [facility] [id number] [place] (generaliz ed anxiety disorder) Problem [facility] [id number] Methamphet amine use Problem [facility] [id number] Overweight Problem Com mon [facility] Social History Social Habit Start Date Stop Date Quantity Comments Source History of Tobacco Use [facility] Sex Assigned At [facility] Smoking Status Start Date Stop Date Source Former Smoker 2024-05-06 00:00:00 2024-05-06 00:00:00 [facility] Medications Ordered Medication Name Filled Medication Name Start Date Stop Date Current Medication? Ordering Clinician Indication Dosage Frequency Signature (SIG) Comments Components Source Propranolol HCl 10 MG Propranolol HCl 10 MG 212 00:00: 00 No 1{table t} BID Propranolo l HCl 10 MG cefTRIAXone Sodium cefTRIAXone Sodium 2023-03 0-14 00:00: 00 No 1g [facility] Nitroglycer in 0.4 MG Nitroglycer in 0.4 [...] Name Observation Time Observation Value Comments S shravan height 2024-05-08 15:15:00 66 [in_i] Commo n [facility] weight 2024-05-08 15:15:00 180 [lb_av] Comm on [facility] temperature 2024-05-08 15:15:00 97.4 [degF] Com [facility] bmi 2024-05-08 15:15:00 29.05 kg/m2 Comm on [facility] oximetry 2024-05-08 15:15:00 98 % Commo n [facility] blood pressure systolic 2024-05-08 15:15:00 118 mm[Hg] [facility] blood pressure diastolic 2024-05-08 15:15:00 80 mm[Hg] Common [facility] height 2024-01-26 09:00:00 66 [in_i] Commo n [facility] weight 2024-01-26 09:00:00 160.8 [lb_av] Co mmon [facility] temperature 2024-01-26 09:00:00 97.5 [degF] Com [facility] bmi 2024-01-26 09:00:00 25.95 kg/m2 Comm on [facility] oximetry 2024-01-26 09:00:00 97 % Commo n [facility] blood pressure systolic 2024-01-26 09:00:00 128 mm[Hg] [facility] blood pressure diastolic 2024-01-26 09:00:00 60 mm[Hg] Common [facility] bmi 2024-01-08 09:20:00 26.11 kg/m2 Comm on [facility] oximetry 2024-01-08 09:20:00 98 % Commo n [facility] blood pressure systolic 2024-01-08 09:20:00 130 mm[Hg] [facility] blood pressure diastolic 2024-01-08 09:20:00 70 mm[Hg] Common [facility] height 2024-01-08 09:20:00 66 [in_i] Commo n [facility] weight 2024-01-08 09:20:00 161.8 [lb_av] Co mmon [facility] temperature 2024-01-08 09:20:00 97.7 [degF] Com mon [facility] height 2023-11-29 10:10:00 66 [in_i] Commo n [facility] weight 2023-11-29 10:10:00 155 [lb_av] Comm on [facility] temperature 2023-11-29 10:10:00 97.4 [degF] Com mon [facility] bmi 2023-11-29 10:10:00 25.01 kg/m2 Comm on [facility] oximetry 2023-11-29 10:10:00 98 % Commo n [facility] blood pressure systolic 2023-11-29 10:10:00 148 mm[Hg] [facility] blood pressure diastolic 2023-11-29 10:10:00 80 mm[Hg] [facility] Encounters Start Date/Time End Date/Time Encounter Type Admission Type Attending Clinicians Care Facility Care Department Encounter ID Source 2024-01-04 07:49:00 Outpatient Arlette Beal STLMLC STLMLC [id number] [facility] 2023-11-29 09:47:01 Outpatient Arlette Beal STLMLC STLMLC [id number] [facility] 2024-05-08 00:00:00 2024-05-08 00:00:00 OFFICE VISIT ESTAB PT LEVEL 3 STLMLC STLMLC [id number] [facility] 2024-04-04 00:00:00 2024-04-04 00:00:00 (TEL) STLMLC STLMLC [id number] [facility] 2024-01-26 00:00:00 2024-01-26 00:00:00 OFFICE VISIT ESTAB PT LEVEL 3 STLMLC STLMLC [id number] [facility] 2024-01-09 00:00:00 2024-01-09 00:00:00 (TEL) STLMLC STLMLC [id number] [facility] 2024-01-08 00:00:00 2024-01-08 00:00:00 OFFICE VISIT ESTAB PT LEVEL 3 STLMLC STLMLC [id number] [facility] 2024-01-03 00:00:00 2024-01-03 00:00:00 (TEL) STLMLC STLMLC [id number] [facility] 2023-12-27 00:00:00 2023-12-27 00:00:00 (TEL) STLMLC STLMLC [id number] [facility] 2023-11-29 00:00:00 2023-11-29 00:00:00 (TEL) STLMLC STLMLC [id number] [facility] 2023-11-29 00:00:00 2023-11-29 00:00:00 OFFICE VISIT NEW PT LEVEL 3 STLMLC STLMLC [id number] [facility] 2023-11-29 00:00:00 2023-11-29 00:00:00 [facility] [id number] Results Test Description Test Time Test Comments Results Result Co mments Source
[2024-07-21] MEDS ORDERED: KETOROLAC 30 MG/ML INJ ONE (21:06)
[2024-07-21] MEDS ORDERED: LORazepam 2 MG/ML VIAL ONE (21:06)
[2024-07-21] MEDS ORDERED: NA CHLORIDE 0.9% 1,000 ML ONE (21:07)
[2024-07-21 21:24] LABS: Barbiturates NEGATIVE (NEGATIVE); Benzodiazepines NEGATIVE (NEGATIVE); Cocaine NEGATIVE (NEGATIVE); METHAMPHETAM NEGATIVE (NEGATIVE); Methadone NEGATIVE (NEGATIVE); Opiates NEGATIVE (NEGATIVE); Phencyclidine NEGATIVE (NEGATIVE); THC Cannibis POSITIVE (NEGATIVE)
--- NOTE | 2024-07-21 21:27 | RAD REPORT ---
EXAMINATION: TWO VIEW CHEST XR CLINICAL INDICATION: CHEST PAIN TECHNIQUE: 2 views of the chest was performed. COMPARISON: 11/29/2023 FINDINGS: The lungs are well inflated and clear. The heart is upper limit of normal in size. No displaced fract ures evident. IMPRESSION: No acute or significant abnormalities.
[2024-07-21 21:34] LABS: Anion Gap 8.7 mEq/L (5.0-15.0); BUN Blood Urea Nitrogen 11 mg/dL (7-18); Bicarbonate 27 mEq/L (21-32); Glomerular Filtration Rate 109 ml/min (=/>90); Glucose Level 100 mg/dL (74-106); Potassium 3.7 mEq/L (3.5-5.1); Sodium Level 136 mEq/L (136-145)
[2024-07-21 21:37] LABS: Troponin High Sensitivity < 3.0 pg/mL (<58.9)
[2024-07-21 21:40] LABS: Absolute Basophils 0.1 K/uL (0-0.5); Absolute Lymphocytes (CBC) 2.6 K/uL (0.7-4.9); Absolute Monocytes 0.9 K/uL (0.1-1.3); Absolute Neutrophil 7.4 K/uL (1.8-8.0); Basophils % 0.5 % (0-1.3); Eosinophils % 0.3 % (0-4.4); Hemoglobin 16.8 g/dL (13.6-17.9); Lymphocytes % 23.6 % (15.3-44.8); MCH 31.7 pg (27.0-35.0); MCV 90.6 fL (80-100); MPV 6.2 fL (7.6-11.3); Monocytes % 8.4 % (3.3-12.3); Neutrophils % 67.2 % (41.7-73.7); Platelets 461 thou/uL (152-406); Red Cell Distribution Width 13.5 % (12.1-15.2)
--- NOTE | 2024-07-21 22:13 | ER ---
Nurse's Notes [facility] Name: Ethan Daly Age: 38 yrs Sex: Male : 1985 Arrival Date: 07/21/2024 Time: 18:36 Bed DX5 Private MD: Diagnosis: Panic disorder [episodic paroxysmal anxiety] without agoraphobia Presentation: 07/21 18:44 Chief complaint: Patient states: intermittent midsternal chest pain, 10/10 that started me1 about 3 days ago. c/o dizziness and generalized weakness with pain. taken SL nitroglycerin with no relief. c/o sob with pain. Coronavirus screen: Vaccine status: Patient reports being unvaccinated. Ebola Screen: No symptoms or risks identified at this time. Initial Sepsis Screen: Does the patient meet any 2 criteria? HR > 90 bpm. Does the patient have a suspected source of infection? No. Patient's initial sepsis screen is negative. Risk Assessment: Do you want to hurt yourself or someone else? Patient reports no desire to harm self or others. Onset of symptoms was July 18, 2024. 18:44 Method Of Arrival: Ambulatory me1 18:44 Acuity: FREDI 3 me1 Historical: - Allergies: 18:48 No Known Allergies; me1 - PMHx: 18:48 Anxiety; Hypertensive disorder; Angina pectoris; me1 - PSHx: 18:48 None; me1 - Immunization history:: Adult Immunizations up to date. - Infectious Disease History:: Denies. - Social history:: Smoking status: Patient denies any tobacco usage or history of. Patient uses street drugs, marijuana. Screenin:00 [facility] ED Fall Risk Assessment (Adult) History of falling in the last 3 months, ha1 including since admission No falls in past 3 months (0 pts) Confusion or Disorientation No (0 pts) Intoxicated or Sedated No (0 pts) Impaired Gait No (0 pts) Mobility Assist Device Used No (0 pt) Altered Elimination No (0 pt) Score/Fall Risk Level 0 - 2 = Low Risk Oriented to surroundings, Maintained a safe environment, Educated pt \T\ family on fall prevention, incl call for assistance when getting out of bed, Hourly rounding (assess needs \T\ fall precautionary measures) done. Abuse screen: Denies threats or abuse. Denies injuries from another. Nutritional screening: No deficits noted. Tuberculosis screening: No symptoms or risk factors identified. Assessment: 19:50 General: Appears uncomfortable, Behavior is cooperative, anxious. Pain: Complains of ha1 pain in chest Pain does not radiate. Pain currently is 7 out of 10 on a pain scale. Quality of pain is described as aching, pressure, Pain began gradually. Neuro: Level of Consciousness is awake, alert, obeys commands, Oriented to person, place, time, situation. Cardiovascular: Capillary refill < 3 seconds Patient's skin is warm and dry. Cardiovascular: Reports chest pain, shortness of breath. Respiratory: Airway is patent Respiratory effort is even, unlabored, Respiratory pattern is regular, symmetrical. Vital Signs: 18:44 BP 139 / 100; Pulse 104; Resp 20; Temp 98.7; Pulse Ox 100% ; Weight 77.11 kg; Height 5 me1 ft. 6 in. ; Pain 10/10; 18:44 Body Mass Index 27.44 (77.11 kg, 167.64 cm) me1 18:44 Pain Scale: Adult ne1 ED Course: 18:37 Patient arrived in ED. cj3 18:38 Shaw Pierre FNP-C [facility]. dr5 18:38 Alan Luna MD is Attending Physician. dr5 18:48 Triage completed. me1 18:48 Arm band placed on Patient placed in waiting room. me1 19:00 Client placed on continuous cardiac and pulse oximetry monitoring. NIBP monitoring ha1 applied. night monitor on. 19:00 Patient has correct armband on for positive identification. Bed in low position. Call ha1 light in reach. Side rails up X 1. Adult w/ patient. 21:02 Basic Metabolic Panel Sent. cg 21:02 CBC with Diff Sent. cg 21:02 Troponin HS Sent. cg 21:02 Urine Drug Screen Sent. cg 21:18 Urine Drug Screen Sent. cg 21:24 Chest Pa And Lat (2 Views) XRAY In Process Unspecified. EDMS 22:00 IV discontinued, intact, bleeding controlled, No redness/swelling at site. Pressure ha1 dressing applied. Administered Medications: 21:17 Drug: NS 0.9% IV 1000 ml IV at 1000 ml once; to be given as a bolus over 60 minutes cg Route: IV; Rate: 1000 ml; Site: right antecubital; 22:20 Follow up: Response: No adverse reaction; IV Status: Completed infusion ha1 21:17 Drug: Ketorolac IVP 15 mg IVP once Route: IVP; Site: right antecubital; cg 21:17 Drug: Ativan IVP 0.5 mg IVP once Route: IVP; Site: right antecubital; cg 22:32 Drug: LORazepam PO 1 mg PO once Route: PO; cg 22:33 Drug: hydrOXYzine PO 25 mg PO once Route: PO; cg Medication: 22:00 VIS not applicable for this client. ha1 Outcome: 22:12 Discharge ordered by . dr5 22:55 Condition: stable ha1 22:55 Discharged to home ambulatory, ha1 22:55 Discharge instructions given to patient, Instructed on discharge instructions, follow up and referral plans. Demonstrated understanding of instructions, follow-up care, 22:57 Patient left the ED. ha1 Signatures: Dispatcher [employer] Mary Pennington RN RN Jessica De Jesus RN RN 1 Janet Montano RN RN ne1 Shaw Pierre, MAIL CARRIER TECHNICIAN-C MAIL CARRIER TECHNICIAN-[facility]5 Diane Burns 3
--- NOTE | 2024-07-21 22:13 | EDPHYS ---
Physician Documentation [facility] Name: Ethan Daly Age: 38 yrs Sex: Male : 1985 Arrival Date: 07/21/2024 Time: 18:36 Bed DX5 Private MD: ED Physician Alan Luna HPI: 07/21 18:56 This 38 yrs old Male presents to ER via Ambulatory with complaints of Chest dr5 Pain, Breathing Difficulty. 18:56 Onset: The symptoms/episode began/occurred 3 day(s) ago. Patient is a 38-year-old male dr5 with history of hypertension, angina pectoris, and anxiety coming in for intermittent chest pain for the past 3 days. Patient states he took 1 nitroglycerin with no relief. Patient denies any alcohol or drug use in the past couple days. Patient reports he is not working at this time and has 4 kids at home and has a lot of stress at home.. Historical: - Allergies: 18:48 No Known Allergies; me1 - PMHx: 18:48 Anxiety; Hypertensive disorder; Angina pectoris; me1 - PSHx: 18:48 None; me1 - Immunization history:: Adult Immunizations up to date. - Infectious Disease History:: Denies. - Social history:: Smoking status: Patient denies any tobacco usage or history of. Patient uses street drugs, marijuana. ROS: 18:55 Constitutional: as per hpi dr5 Exam: 18:56 Constitutional: This is a well developed, well nourished patient who is awake, alert, dr5 and in no acute distress. Head/Face: Normocephalic, atraumatic. Eyes: Pupils equal round and reactive to light, extra-ocular motions intact. Lids and lashes normal. Conjunctiva and sclera are non-icteric and not injected. Cornea within normal limits. Periorbital areas with no swelling, redness, or edema. Neck: Trachea midline, no thyromegaly or masses palpated, and no cervical lymphadenopathy. Supple, full range of motion without nuchal rigidity, or vertebral point tenderness. No Meningismus. Chest/axilla: Normal chest wall appearance and motion. Nontender with no deformity. No lesions are appreciated. Cardiovascular: Tachycardic rate and rhythm with a normal S1 and S2. Normal PMI, no JVD. No pulse deficits Respiratory: Lungs have equal breath sounds bilaterally, clear to auscultation. No rales, rhonchi or wheezes noted. No increased work of breathing, no retractions or nasal flaring. Back: No spinal tenderness. No costovertebral tenderness. Full range of motion. Skin: Warm, dry with normal turgor. Normal color with no rashes, no lesions, and no evidence of cellulitis. MS/ Extremity: Pulses equal, no cyanosis. Neurovascular intact. Full, normal range of motion. Neuro: Awake and alert, GCS 15, oriented to person, place, time, and situation. Cranial nerves II-XII grossly intact. Motor strength 5/5 in all extremities. Sensory grossly intact. Cerebellar exam normal. Normal gait. Psych: Patient seems mildly anxious and paranoid Vital Signs: 18:44 BP 139 / 100; Pulse 104; Resp 20; Temp 98.7; Pulse Ox 100% ; Weight 77.11 kg; Height 5 me1 ft. 6 in. ; Pain 10/10; 18:44 Body Mass Index 27.44 (77.11 kg, 167.64 cm) me1 18:44 Pain Scale: Adult me1 MDM: 18:38 Medical Screening Exam initiated dr5 22:27 Differential diagnosis: viral Infection, bacterial infection, bronchitis, pneumonia dr5 Anxiety, STEMI, Pneumonia. Data reviewed: vital signs, nurses notes, lab test result(s), radiologic studies. Historians other than the Patient: Parent: Mother and Father. Care significantly affected by the following chronic conditions: Anxiety, HTN, Angina Pectoris. Care significantly affected by the following Social Determinants of Health: Poor access to healthcare and/or lack of insurance, Poor access to transportation, Problems related to employment. Counseling: I had a detailed discussion with the patient and/or guardian regarding the historical points, exam findings, and any diagnostic results supporting the discharge/admit diagnosis, the presence of at least one elevated blood pressure reading (>120/80) during this emergency department visit, lab results, radiology results, the need for outpatient follow up, for definitive care, a family practitioner, to return to the emergency department if symptoms worsen or persist or if there are any questions or concerns that arise at home. Medication response: Ativan, Toradol, NS. Response to treatment: the patient's symptoms have resolved after treatment. ED course: Patient reports he is feeling better. Will trial patient on hydroxyzine as needed. Recommended patient follow primary care doctor this week. Patient's labs and x-ray discussed with patient as well as printed and given to him to take to primary care doctor. All questions answered. Patient reports he is feeling better. Strict ER precautions given if chest pain comes back. 07/21 18:55 Order name: Basic Metabolic Panel; Complete Time: 21:41 [facility] 07/21 18:55 Order name: CBC with Diff; Complete Time: 21:49 [facility] 07/21 18:55 Order name: Troponin HS; Complete Time: 21:41 [facility] 07/21 18:55 Order name: Urine Drug Screen; Complete Time: 21:41 [facility] 07/21 18:55 Order name: Chest Pa And Lat (2 Views) XRAY; Complete Time: 21:41 [facility] 07/21 18:55 Order name: EKG - Nurse/Tech; Complete Time: 21:14 [facility] 07/21 18:55 Order name: IV Saline Lock; Complete Time: 21:02 [facility] 07/21 18:55 Order name: Labs collected and sent; Complete Time: 21:18 [facility] 07/21 18:55 Order name: O2 Per Protocol; Complete Time: 21:18 [facility] 07/21 18:55 Order name: O2 Sat Monitoring; Complete Time: 21:18 dr5 EC:55 Rate is 104 beats/min. Rhythm is regular. QRS [place] is Normal. CA interval is normal at dr5 150 msec. QRS interval is normal at 82 msec. QT interval is normal at 346 msec. Administered Medications: 21:17 Drug: NS 0.9% IV 1000 ml IV at 1000 ml once; to be given as a bolus over 60 minutes cg Route: IV; Rate: 1000 ml; Site: right antecubital; 22:20 Follow up: Response: No adverse reaction; IV Status: Completed infusion ha1 21:17 Drug: Ketorolac IVP 15 mg IVP once Route: IVP; Site: right antecubital; cg 21:17 Drug: Ativan IVP 0.5 mg IVP once Route: IVP; Site: right antecubital; cg 22:32 Drug: LORazepam PO 1 mg PO once Route: PO; cg 22:33 Drug: hydrOXYzine PO 25 mg PO once Route: PO; cg Disposition Summary: 07/21/24 22:12 Discharge Ordered Notes: Location: Home dr5 Condition: Stable dr5 Diagnosis - Panic disorder [episodic paroxysmal anxiety] without agoraphobia dr5 Followup: dr5 - With: Emergency Department - When: As needed - Reason: Worsening of condition Followup: dr5 - With: Private Physician - When: 1 - 2 days - Reason: Recheck today's complaints, Continuance of care, Re-evaluation by your physician Discharge Instructions: - Discharge Summary Sheet dr5 - Panic Attack dr5 Forms: - Medication Reconciliation Form dr5 - Patient Portal Instructions dr5 - Leadership Thank You Letter dr5 Prescriptions: - Hydroxyzine HCl 25 mg Oral Tablet - take 1 tablet ORAL route every 6 hours As needed; 12 tablet; Refills: 0, dr5 Product Selection Permitted Signatures: Dispatcher [employer] Mary Pennington, RN RN Janet Montano RN RN me1 Shaw Pierre FNP-C SURGICAL SERVICES COORDINATOR-5 Jessica De Jesus RN ha1 Corrections: (The following items were deleted from the chart) 18:55 18:55 BASIC METABOLIC PANEL+C.LAB.BRZ ordered. EDMS EDMS 18:55 18:55 CBC+H.LAB.BRZ ordered. EDMS EDMS 18:55 18:55 Troponin High Sensitivity+C.LAB.BRZ ordered. EDMS EDMS 18:55 18:55 URINE DRUG SCREEN+UC.LAB.BRZ ordered. EDMS EDMS 18:56 18:55 Chest Pa And Lat (2 Views)+RAD.RAD.BRZ ordered. EDMS EDMS
[2024-07-21] MEDS ORDERED: LORAZEPAM 1 MG TABLET ONE (22:26)
[2024-07-21] MEDS ORDERED: hydrOXYzine HCL 25 MG TAB ONE (22:26)
--- NOTE | 2024-07-22 12:08 | EKG ---
Test Date: 2024-07-21 Test Time: 18:54:33 Brake Machine Operator: MEASUREMENT RESULTS: Intervals: Rate: 104 [place]: 150 QRSD: 82 QT: 346 QTc: 454 [place]: P: 79 NJ: 150 QRS: 256 T: 42 INTERPRETIVE STATEMENTS: Poor data quality, interpretation may be adversely affected Sinus tachycardia Possible Left atrial enlargement Right superior axis deviation Abnormal ECG Compared to ECG 06/25/2024 19:58:36 Right superior axis now present Sinus rhythm no longer present Left anterior fascicular block no longer present Electronically Signed On 07-22-24 12:06:37 CDT by Chandu Simms
--- NOTE | 2024-07-23 11:48 | EKG ---
Test Date: 2024-07-21 Test Time: 21:12:21 Die Drawing Checker: SARITA MEASUREMENT RESULTS: Intervals: Rate: 85 IL: 148 QRSD: 84 QT: 370 QTc: 440 [place]: P: 82 IL: 148 QRS: 60 T: 59 INTERPRETIVE STATEMENTS: Normal sinus rhythm Possible Left atrial enlargement Borderline ECG Compared to ECG 07/21/2024 18:54:33 Sinus tachycardia no longer present Right superior axis no longer present Electronically Signed On 07-23-24 11:46:36 CDT by Chandu Simms
== END 2024-07-21 22:57 | disposition home or self-care (01) ==
LOC: ER 18:36
DX: F41.0 Panic disorder [episodic paroxysmal anxiety] (principal)
CPT/HCPCS: 36415; 71046; 80048; 80307; 84484; 85025; 93005; 96361; 96374; 96375; 99285; J7030